=== PATIENT | male | born 1970 | race Asian ===

== ENCOUNTER 2021-06-01 00:47 | Day surgery (SDC) | payer BC, SELFPAY ==
[2021-05-14 14:05] VITALS: BMI 31.4
--- NOTE | 2021-05-31 13:09 | PM.HPGS ---
History of Present Illness History of Present Illness Consent: Risks, benefits, and alternatives have been discussed and questions answered. Patient agrees to proceed with procedure. Chief complaint: neoplasm screening Narrative: Helder Giron is a 51 year old male referred for colon cancer screening Review of Systems Review of Systems: All systems reviewed & are unremarkable except as noted in HPI and below PMFSH Past Medical History Medical History Hypothyroidism (acquired) Lipoma Nephrolithiasis Onychomycosis Steatosis of liver Surgical History Surgical History H/O lithotripsy H/O lumbosacral spine surgery 1990 L5-S1 discectomy S/P excision of lipoma Family History Family History Mother Asthma Social History Social History Social History: Smoking status: Never smoker Second hand tobacco smoke exposure: No Alcohol intake: never Substance use: never Substance use type: does not use Living arrangements: alone Gender identity (if verbalized by the patient): Male Sexual Orientation (if Verbalized by the Patient): Straight or Heterosexual Spiritual care concerns: No Meds Home Medications and Allergies Home Medications Medication Instructions Recorded Confirmed Type levothyroxine 25 mcg tablet 25 mcg PO DAILY #90 tablet 03/29/21 06/01/21 Rx cholecalciferol (vitamin D3) 50 mcg PO DAILY 05/14/21 06/01/21 History [Vitamin D3] penciclovir [Denavir] 1 applic TOPICAL Q2H PRN 05/14/21 06/01/21 History vitamin K2 150 mcg PO DAILY 05/14/21 06/01/21 History Allergies Allergy/AdvReac Type Severity Reaction Status Date / Time No Known Allergies Allergy Verified 06/01/21 08:36 Exam Resp: Auscultation: clear to auscultation bilaterally Cardio: Rate: regular rate Rhythm: regular rhythm GI: GI Palp: Yes Soft to palpation and No Tenderness to palpation present (GI) Assessment and Plan Assessment and plan (1) Colon cancer screening: Code(s): Z12.11 - Encounter for screening for malignant neoplasm of colon Status: Acute Assessment and Plan: Colonoscopy with possible biopsy or polypectomy or cautery or injection of substances.
--- NOTE | 2021-05-31 14:38 | P.PNAN_ITS ---
Anes - Initial Pre Proc Eval Procedure: Operation Date: 06/01/21 09:30 Proposed Procedures p Screening Colonoscopy - Danny Ramirez MD Date/Time: 05/31/21 14:38 Surgeon: Danny Ramirez MD Pre Op Diagnosis: neoplasm screening Patient Data Age: 51 Gender: M Height: 1.8 m Weight: 102 kg Allergies Allergy/AdvReac Type Severity Reaction Status Date / Time No Known Allergies Allergy Verified 06/01/21 08:36 Home Medications Medication Instructions Recorded Confirmed Type levothyroxine 25 mcg tablet 25 mcg PO DAILY #90 tablet 03/29/21 06/01/21 Rx cholecalciferol (vitamin D3) 50 mcg PO DAILY 05/14/21 06/01/21 History [Vitamin D3] penciclovir [Denavir] 1 applic TOPICAL Q2H PRN 05/14/21 06/01/21 History vitamin K2 150 mcg PO DAILY 05/14/21 06/01/21 History Patient hx anesthesia problems: none Family hx anesthesia problems: none Results Review: All pre-operative results and documents have been reviewed as part of the pre-operative evaluation. [facility] Past Medical History Medical History Hypothyroidism (acquired) Lipoma Nephrolithiasis Onychomycosis Steatosis of liver Surgical History Surgical History H/O lithotripsy H/O lumbosacral spine surgery 1990 L5-S1 discectomy S/P excision of lipoma Family History Family History Mother Asthma Social History Social History (Updated 03/29/21 @ 08:29 by Kathleen Powers) Social History: Smoking status: Never smoker Second hand tobacco smoke exposure: No Alcohol intake: never Substance use: never Substance use type: does not use Living arrangements: alone Gender identity (if verbalized by the patient): Male Sexual Orientation (if Verbalized by the Patient): Straight or Heterosexual Spiritual care concerns: No Anes - Eval Final PreProcedure Day of Procedure 05/31/21 14:38 Patient weight: obese Heart: regular rate and rhythm Lungs: clear to auscultation and normal air movement Airway: Mallampati scale class II Neurological: alert and oriented Last oral intake: >/= 8 hours ASA classification: II Emergent: no Anesthetic plan: proceed Anesthesia type and monitoring: general LMA and standard monitoring Results Review: All pre-operative results and documents have been reviewed as part of the pre-operative evaluation. Informed Consent: The patient's anesthetic plan and its attendant risks and benefits were discussed with the patient/family/POA. Questions were solicited and answers provided to the satisfaction of the patient/family/POA.
[2021-06-01 08:36] VITALS: BP 155/96; PULSE 74; RESP 18; TEMP 36.2; O2SAT 100
[2021-06-01] MEDS: LACTATED RINGERS 1,000 ML 30 ML IV CONT (08:48)
[2021-06-01 09:44] VITALS: BP 117/73; PULSE 76; RESP 18; O2SAT 98
[2021-06-01 09:54] VITALS: BP 127/79; PULSE 64; RESP 20; O2SAT 98
[2021-06-01 10:04] VITALS: BP 129/88; PULSE 62; RESP 16; O2SAT 99
== END 2021-06-01 10:17 | disposition home or self-care (01) ==
PROVIDERS: PCP Family Medicine; Visit Provider Internal Medicine Gastroenterology
PROC: 0DJD8ZZ Inspection of Lower Intestinal Tract, Via Natural or Artificial Opening Endoscopic (ICD-10-PCS; CPT 45378; principal; 2021-06-01 09:30)
DX: Z12.11 Encounter for screening for malignant neoplasm of colon (principal); D12.5 Benign neoplasm of sigmoid colon; D12.3 Benign neoplasm of transverse colon; E03.9 Hypothyroidism, unspecified; B35.1 Tinea unguium; K76.0 Fatty (change of) liver, not elsewhere classified; E66.9 Obesity, unspecified; Z68.31 Body mass index [BMI] 31.0-31.9, adult
CPT/HCPCS: 45385; 45380; 88305; J2704; J7120

== ENCOUNTER 2024-08-02 01:33 | Day surgery (SDC) | payer BC, SELFPAY ==
[2024-07-23 13:48] VITALS: BMI 29.5
--- OUTSIDE RECORDS SUMMARY | 2024-08-02 01:39 | XMS_ITS ---
Author Organization [facility] Address [address] [facility] [address] [place] [address] Care Team Providers Care Loan Processor Name Role Phone Lukas Padilla MD Primary Care Provider Jasmin Rasmussen Unavailable [phone] Allergies No Known Allergies REASON FOR VISIT f/u ADHD Medications Medication SIG (Take, Route, Frequency, Duration) Notes Start Date End Date Status Valsartan 80 MG 1 tablet Orally Once a day Active Synthroid 25 MCG 1 tablet in the morning on an empty stomach Orally Once a day Active Amphetamine-Dextroamph et ER 25 MG 1 capsule in the morning Orally Once a day for 30 days d/c 20 mg dose 06/07/2024 Active Social History Tobacco Use: Social History Observation Description Date Details (start date - stop date) Never Smoker NA - NA Sex Assigned At : Social History Observation Description Sex Assigned At Male Household Question Answer Notes Marital status: Number of adults in household: 2 Number of children in household: 2 son and daughter Level of education: finished college retired ofe se Tobacco Control (Standard) Question Answer Notes Tobacco use: Nonsmoker AUDIT-C (Standard) Question Answer Notes Did you have a drink contain ing alcohol in the past year? Yes How often did you have six o r more drinks on one occasion in the past year? Less than monthly (1 point) How many drinks did you have on a typical day when you were drinking in the past year? 1 or 2 drinks (0 point) How often did you have a dri nk containing alcohol in the past year? Monthly or less (1 point) Points 2 Interpretation Negative Problems Problem Type SNOMED Code ICD Code Onset Dates Problem Status W/U Status Risk Notes Problem [id number] Hypertension, unspecified type (I10) Active confirmed Vital Signs Blood pressure systolic 129 mm Hg 06/08/19 25 Blood pressure diastolic 86 mm Hg 025 Heart Rate 71 /min 06/08/2024 Height 71 in 06/08/2024 Weight 220.0 lbs 06/08/2024 BMI 30.68 kg/m2 06/08/2024 Height-cm 180.34 cm 06/08/2024 Weight-kg 99.79 kg 06/08/2024 Encounters Encounter Location Date Provider Diagnosis [facility] [address] [facility] [address] [place] [address] 06/08/2024 Jasmin Tang ADHD (attention deficit hyperactivity disorder), combined type F90.2 Assessments Encounter Date Diagnosis (ICD Code) Assessment Notes Treatment Notes Treatment Clinical Notes Section Notes 06/08/2024 ADHD (attention deficit hyperactivity disorder), combined type (ICD-10 - F90.2) Electronic Prior Authorization was requested for Qelbree 200 MG Capsule Extended Release 24 Hour. Provider can order medication once approval received., Learning About Attention Deficit Hyperactivity Disorder (ADHD) in Adults material was published, Attention Deficit Hyperactivity Disorder (ADHD) in Adults: Care Instructions material was published, Learning About Stimulant Medicines for Attention Deficit Hyperactivity Disorder (ADHD) material was published adhd - DOROTEO-2 reviewed Discuss non- stimualtes and stimulates patient has issues with kidney stones and prefer not to have Straterra with urinary issues Patient has hx irritable at times and prefer not to have Wellbutrin discuss and educated on rx d/c Qelbree 200 mg daily in am PA sent- denied- pateint reported rx did not help educated on stimulates and not to take Phertermine with stimulates Discuss and educated on stimulates discuss Arturo pm and educated on rx and patient reported would like to stay on Adderall pateint reported monitor B/P at home daily Adderall XR 25 MG IN AM- Primary [facility] no refill needed today secondary [facility] [place] no early refill on control [facility] and [place] pharmacy monitor B/P see PCP with B/P patient reported takes Vit K2, MTV, Milk Thistle, (HX FATYY LIVER resolved) Vit D, fish oil, folic acid, vit B 12, DOROTEO-2 test indicated results - do not support the dxn suggested by self rating scale for ADHD hyperactive/impul sive or inattentive s/s, DOROTEO-2 test showed impairments in response control and attention, global response control quotinet scale mild impairment and 3 attention primary scales fell in substantially impaired range, refer to PCP with elevated B/P- SEEN PCP educated to decrease Caffiene intake ADHD stimulates education Discuss with patient risk of misuse, abuse, and addiction before prescribing stimulant medicines. Microwave Radio Technician patients not to share their prescribed stimulant with anyone else. Educate patients and their families on these serious risks, proper storage of the medicine, and proper disposal of any unused medicine. Educated patient will monitor Throughout treatment, regularly assess and monitor them for signs and symptoms of nonmedical use, addiction, and potential diversion, which may be evidenced by more frequent renewal. requests than warranted by the prescribed dosage. Random UDS [place] prescription reviewed local pharmacy in [place], no early refills on control substance educated on non-stimulate and stimulates SEEN PCP with B/P educated on healthy b/p 120/80 monitor b/p at home refer to PCP, heart healthy diet and excise limit salt intake and caffeine http_s://www.gunner .org/About-Mental -Illness/Mental-H ealth-Conditions http_s://psychcen TIKI.VN.com/depressi on/the-cognitive- lhkpixma-py-uirqx ssion#treatments http__s://www.nim h.nih.gov/health/ topics/mental-hea lth-medications http__s://www.nam i.org/About-Menta l-Illness/Treatme nts/Mental-Health -Medications educated on all medications, benefits, side effects and risk, and educated on depression, anxiety, and ADHD, mood d/o and educated on compliance of medications, metabolic and movement d/o education appointment's, continue therapy discussion with patient about course of treatment and patient instructions. education on serotonin syndrome Discussed and educated pt regarding benzodiazepines are generally not intended for prolonged use and that use can cause tolerance, dependence, depression, and associated memory issues including dementias (this list is not exhaustive). Benzodiazepine use is generally not recommended concurrently with pain medications and/or other controlled substances educated on all medications, benefits, side effects and risk, and educated on depression, anxiety, and ADHD, mood d/o and educated on compliance of medications, metabolic and movement d/o education appointment is, continue therapy discussion with patient about course of treatment and patient instructions. education on serotonin syndrome SSRI/SNRI side effects discussed including but not limited to, gastric upset, nausea, vomiting, diarrhea and/or constipation, weight changes, sexual side effects including loss of libido, increased suicidal thoughts/behavior s in children and young adults, and serotonin syndrome. Medication Management and Follow-Up - Plan: - Schedule follow-up appointments every 1-3 months to monitor the patient's response to the medication regimen. - Reinforce the importance of avoiding recreational drug use due to potential neurotoxicity and interactions with prescribed medications. Plan Of Treatment Treatment Notes Assessment Notes ADHD (attention deficit hype ractivity disorder), combined type Electronic Prior Authorization was requested for Qelbree 200 MG Capsule Extended Release 24 Hour. Provider can order medication once approval received., Learning About Attention Deficit Hyperactivity Disorder (ADHD) in Adults material was published, Attention Deficit Hyperactivity Disorder (ADHD) in Adults: Care Instructions material was published, Learning About Stimulant Medicines for Attention Deficit Hyperactivity Disorder (ADHD) material was published Next Appt Details Follow Up: 3 Months, Reason: f/u ADHD rx Provider Name:Jasmin Tang , 09/06/2024 08:15:00 AM, [address] [facility], [facility] [address], [place], [address], Progress Notes * Arash VALDEZNathalieOB: [birth year] (54 yo M)Acc No.[id number]:06/08/2024 Patient: Helder QUEEN Provider: Onofre TANG PMHNP :1970 A ge:54 Y S ex:Male Date:06/08/2024 Phone: Address:[address] [place], [place] [id number] Pcp:Lukas Padilla MD Subjective: * Chief Complaints: * 1 . f/u ADHD. * HPI: D epression Screening: FRANTZ-7 (2018 Edition) F eeling nervous, anxious, or on edge?Not at all, N ot being able to stop or control worrying N ot at all, W orrying too much about different things N ot at all, T rouble relaxing N ot at all, B eing so restless that it is hard to sit still N ot at all, B ecoming easily annoyed or irritable S everal days, F eeling afraid as if something awful might happen N ot at all, I f you checked any problems, how difficult have they made it for you to do your work, take care of things at home, or get along with other people? N ot difficult at all, I nterpretation of Total ( 0 to 4) No Anxiety. C [place]-Suicide Severity Rating Scale: Suicide Risk (CSRS-screener) i n the past one month Have you wished you were or wished you could go to sleep and not wake up? N o, i n the past one month Have you actually had any thoughts of killing yourself? N o, H ave you ever done anything, started to do anything, or prepared to do anything to end your life? N o. D epression screening: PHQ-9 L ittle interest or pleasure in doing things N ot at all, F eeling down, depressed, or hopeless N ot at all, T rouble falling or staying asleep, or sleeping too much N ot at all, F eeling tired or having little energy N ot at all, P oor appetite or overeating N ot at all, F eeling bad about yourself or that you are a failure, or have let yourself or your family down N ot at all, T rouble concentrating on things, such as reading the newspaper or watching television N ot at all, M oving or speaking so slowly that other people could have noticed; or the opposite, being so fidgety or restless that you have been moving around a lot more than usual N ot at all, T houghts that you would be better off or of hurting yourself in some way N ot at all, T otal Score 0 . P ast Psychiatric Hospitalizations: Previous psychiatric hospitalizations P revious Psychiatric Hospitalization N o. P ast History of Suicidal attempt H ave you ever attempted suicide in the past N o. Follow up I ran into office and B/P was up and after I sit normal and I monitor it at home and ADHD rx Adderall is doing good and better feel concentration and focus and also with irritable better and I am more engage and able to do task, I feel like dose is good, sleep good and I feel evening hours 4-5 pm rx wears off and less energy and still able to focus and able to go to bed, I feel no sad or down, no hopeless or helpless, I feel no anxious, no panic attacks, and no restless, appetite good, weight stable no psychosis, no delusions, no paranoia, no sesar, no hypomania, no physical aggression, motivation and interest fine, energy normal, noSI/HI 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 I get bored also, I am not hyper talkative, and in school with speeches or public speeches needed notes or lose trian thought and times needed to move around but not frequent, I can sit long periods time, I do interrupt others to get thoughts out, or forget it or thought across, cause tension at times, been going on all my life, effecys social, home, work, and irritates my and others, denies SI/HI no plans or intent no past attempts, no thoughts harm to self or others, FH son and daughter thoughts no attempts, no self cutting or self harm, no psychiatric hospital, weapons in home in safe, ETOH- occasional - 2 drinks a year smoking- denies labs- recently- PCP drugs- denies RX HX- none for psychiatric medical- hypothyroidism, L5-S1- SURGERY, Vit D def on rx, FH- Children - Depression, Daughter 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 reported takes V it K2, MTV, Milk Thistle, (HX FATYY LIVER resolved) Vit D, fish oil, folic acid, vit B 12,. * ROS: P sychiatric: Delusions d enies. r eports n o shortness of breath no palpitations, no known heart murmur, and no ankle swelling; no cough. r eports no abdominal pain, no nausea, no vomiting, no constipation, normal appetite, no diarrhea, and no GERD; . r eports no headaches and no migraines but reports no loss of consciousness, no weakness, no numbness, no seizures, no dizziness, no tremor, no gait dysfunction, and no paralysis. r eports no sleep disturbances no restless sleep, and no memory loss b ut reports no depression, feeling safe in a relationship, no alcohol abuse, mild anxiety, no hallucinations, no suicidal thoughts, no mood swings, no agitation, r eports no fatigue. reports no fever, no significant weight gain, and no significant weight loss. reports no incontinence, no difficulty urinating, and no increased frequency. HX KIDNEY STONES and obstructions - hx Flomax PRN r eports no muscle aches, no muscle weakness, no arthralgias/joint pain, no back pain, no swelling in the extremities, no neck pain, and no difficulty walking. * Medical History: a bdominal aortic aneurysm: No, atrial fibrillation: No, chronic fatigue syndrome: No, essential tremor: No, hyperlipidemia: No, hypertension: No, Parkinson's disease: No, restless leg syndrome: No, stroke: No, type 1 diabetes mellitus: No, type 2 diabetes mellitus: No, vitamin B12 deficiency: No, vitamin D deficiency: Yes. * Social History: T obacco Use: T obacco Control (Standard) T obacco use: N onsmoker. D rug/Alcohol: D rugs H ave you used drugs other than those for medical reasons in the past 12 months??No. C affeine I ntake: m ore than 4 cups per day 2-3 pots coffee a day. D o you smoke marijuana?: Denies. Do you drink alcohol?: Yes, sometimes few times a year. AUDIT-C (Standard)?Did you have a drink containing alcohol in the past year? Y es, H ow often did you have six or more drinks on one occasion in the past year? L ess than monthly (1 point), H ow many drinks did you have on a typical day when you were drinking in the past year? 1 or 2 drinks (0 point), H ow often did you have a drink containing alcohol in the past year? M onthly or less (1 point), P oints 2 , I nterpretation N egative. H ousehold: H ousehold M arital status: m arried, N umber of adults in household: 2 , N umber of children in household: 2 son and daughter, N umber of siblings: 2 sister and 1/2 brother, Carmenza altael of education: f [employer] retired nurse, A vt household tobacco use? N o. M iscellaneous: A dvance Care Planning A re you your own decision-maker Y es, D o you have Power of Transcripter for Health or Medical? N o. S ocial History: H ousehold M arital Status: M arried. * Medications: T aking Valsartan 80 MG Tablet 1 tablet Orally Once a day , Taking Synthroid 25 MCG Tablet 1 tablet in the morning on an empty stomach Orally Once a day , Taking Amphetamine-Dextroamphet ER 25 MG Capsule Extended Release 24 Hour 1 capsule in the morning Orally Once a day , Notes to Pharmacist: d/c 20 mg dose, Medication List reviewed and reconciled with the patient * Allergies: N .K.D.A. Objective: * Vitals: B P: 150/83 mm Hg,129/86mm Hg, HR:71/min, Wt:220.0lbs, Wt-k.79 kg, Ht: 71 in, Ht-cm: 180.34 cm, BMI:30.68Index, Body Surface Area: 2.23. * Examination: P sychiatry: Appearance: w ell-groomed. Abnormal body movements: n one. Affect / mood: a ppropriate, full range. Aggression: l ow. Anger control: g ood. Attention: g ood. Attitude: c ooperative. Homicidal ideation: n one. Suicidal ideation: n one. Memory status: n o impairment noted. Degree of awareness of surroundings: w ithin normal limits.? Delusions: n o. Hallucinations: n o. Impulse control: g ood. Insight: g ood. Intellectual functioning: a verage. Calculation - Intellectual function: n ot tested. Literacy - Intellectual function: n ot tested. Comprehension - Intellectual function: a verage. Abstract / proverb - Intellectual function: n ot tested.? Similarities / opposites - Intellectual function: n ot tested. Judgement: g ood. Orientation: a wake, alert and oriented x 3. Perceptual disorders: n o perceptual disorder noted. Psychomotor activity: w ithin normal range. Sexual impulse control: g ood. Speech / language: a ppropriate pitch/modulation. Thought content: a ppropriate. Thought process: i ntact. Assessment: * Assessment: 1. A DHD (attention deficit hyperactivity disorder), combined type - F90.2 (Primary) adhd - DOROTEO-2 reviewed Discuss non- stimualtes and stimulates patient has issues with kidney stones and prefer not to have Straterra with urinary issues Patient has hx irritable at times and prefer not to have Wellbutrin discuss and educated on rx d/c Qelbree 200 mg daily in am PA sent- denied- pateint reported rx did not help educated on stimulates and not to take Phertermine with stimulates Discuss and educated on stimulates discuss Arturo pm and educated on rx and patient reported would like to stay on Adderall pateint reported monitor B/P at home daily A dderall XR 25 MG IN AM- Primary [facility] no refill needed today [facility] [place] no early refill on control substance and [place] pharmacy monitor B/P see PCP with B/P patient reported takes Vit K2, MTV, Milk Thistle, (HX FATYY LIVER resolved) Vit D, fish oil, folic acid, vit B 12, DOROTEO-2 test indicated results - do not support the dxn suggested by self rating scale for ADHD hyperactive/impulsive or inattentive s/s, DOROTEO-2 test showed impairments in response control and attention, global response control quotinet scale mild impairment and 3 attention primary scales fell in substantially impaired range, refer to PCP with elevated B/P- SEEN PCP educated to decrease Caffiene intake ADHD stimulates education Discuss with patient risk of misuse, abuse, and addiction before prescribing stimulant medicines. Microwave Radio Technician patients not to share their prescribed stimulant with anyone else. Educate patients and their families on these serious risks, proper storage of the medicine, and proper disposal of any unused medicine. Educated patient will monitor Throughout treatment, regularly assess and monitor them for signs and symptoms of nonmedical use, addiction, and potential diversion, which may be evidenced by more frequent renewal. requests than warranted by the prescribed dosage. Random UDS [place] prescription reviewed local pharmacy [place], no early refills on control substance educated on non-stimulate and stimulates SEEN PCP with B/P educated on healthy b/p 120/80 monitor b/p at home refer to PCP, heart healthy diet and excise limit salt intake and caffeine http_s://www.gunner.org/Mizvx-Asjeqj-Pqvqrpa/Tmczhp-Nwkjsi-Sysewnbowj http_s://psychcentral.com/depression/poc-grbzbnebe-lxigpuvk-of-depression#treatm ents http__s://www.[facility].nih.gov/health/topics/nzgzkw-ewtdpa-jllhbiwhlef http__s://www.gunner.org/Qghpn-Bdmlrk-Xlmoool/Treatments/Pqnvmc-Jwijmh-Kgtxcfeaxfz educated on all medications, benefits, side effects and risk, and educated on depression, anxiety, and ADHD, mood d/o and educated on compliance of medications, metabolic and movement d/o education appointment's, continue therapy discussion with patient about course of treatment and patient instructions. education on serotonin syndrome Discussed and educated pt regarding benzodiazepines are generally not intended for prolonged use and that use can cause tolerance, dependence, depression, and associated memory issues including dementias (this list is not exhaustive). Benzodiazepine use is generally not recommended concurrently with pain medications and/or other controlled substances educated on all medications, benefits, side effects and risk, and educated on depression, anxiety, and ADHD, mood d/o and educated on compliance of medications, metabolic and movement d/o education appointment is, continue therapy discussion with patient about course of treatment and patient instructions. education on serotonin syndrome SSRI/SNRI side effects discussed including but not limited to, gastric upset, nausea, vomiting, diarrhea and/or constipation, weight changes, sexual side effects including loss of libido, increased suicidal thoughts/behaviors in children and young adults, and serotonin syndrome. Medication Management and Follow-Up - Plan: - Schedule follow-up appointments every 1-3 months to monitor the patient's response to the medication regimen. - Reinforce the importance of avoiding recreational drug use due to potential neurotoxicity and interactions with prescribed medications. Plan: * Treatment: * Procedure Codes: G 2211 VISIT COMPLEXITY INHERENT TO ONGOING CARE RELATED TO A PATIENT'S SINGLE, SERIOUS CONDITION OR A COMPLEX CONDITION * Preventive Medicine: Counseling: B P Management: F IRST HYPERTENSIVE BP READING FOLLOW-UP PLAN: F ollow-up 1 month Follow up with your PCP, Carmenza MCCLURE RECOMMENDATION: Carmenza mcclure education, REFERRAL TO ALTERNATIVE / PRIMARY CARE PROVIDER: R eferral to general medical service Recommended Nonpharmacologic Interventions (Lifestyle Modifications) - Weight ReductionA heart-healthy diet , such as Dietary Approaches to Stop Hypertension (DASH) Eating PlanDietary Sodium RestrictionIncreased Physical ActivityModeration in alcohol consumption. * Follow Up: 3 Months (Reason: f/u ADHD rx) * Billing Information: * Visit Code: 15137 OFFICE OUTPATIENT VISIT PROBLEM FOCUSED HISTORY AND EXAM/STRAIGHT FORWARD MEDICAL DECISION MAKING. * Procedure Codes: G2211 VISIT COMPLEXITY INHERENT TO ONGOING CARE RELATED TO A PATIENT'S SINGLE, SERIOUS CONDITION OR A COMPLEX CONDITION. * OGRAPHIC LITHOGRAPHER Sign off status: Completed true * Provider: ALINE LAKE Date: 06/08/2024 Generated for Nora greco/Darrion/Chencho on: 08/02/2024 01:38 AM CDT History and Physical Notes * HPI (History of Present Illness) Category Sub-Category Detail Notes Category Not es Past Psychiatric Hospitalizations Previous psychiatric hospitalizations Previous Psychiatric Hospitalization: No Follow up I ran into office and B/P was up and after I sit normal and I monitor it at home and ADHD rx Adderall is doing good and better feel concentration and focus and also with irritable better and I am more engage and able to do task, I feel like dose is good, sleep good and I feel evening hours 4-5 pm rx wears off and less energy and still able to focus and able to go to bed, I feel no sad or down, no hopeless or helpless, I feel no anxious, no panic attacks, and no restless, appetite good, weight stable no psychosis, no delusions, no paranoia, no sesar, no hypomania, no physical aggression, motivation and interest fine, energy normal, noSI/HI 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 I get bored also, I am not hyper talkative, and in school with speeches or public speeches needed notes or lose trian thought and times needed to move around but not frequent, I can sit long periods time, I do interrupt others to get thoughts out, or forget it or thought across, cause tension at times, been going on all my life, effecys social, home, work, and irritates my and others, denies SI/HI no plans or intent no past attempts, no thoughts harm to self or others, FH son and daughter thoughts no attempts, no self cutting or self harm, no psychiatric hospital, weapons in home in safe, ETOH- occasional - 2 drinks a year smoking- denies labs- recently- PCP drugs- denies RX HX- none for psychiatric medical- hypothyroidism, L5-S1- SURGERY, Vit D def on rx, FH- Children - Depression, Daughter 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 reported takes Vit K2, MTV, Milk Thistle, (HX FATYY LIVER resolved) Vit D, fish oil, folic acid, vit B 12, Past History of Suicidal attempt Have yo u ever attempted suicide in the past: No Depression screening PHQ-9 Little inte rest or pleasure in doing things: Not at all Feeling down, depressed, or hopeless: No t at all Trouble falling or staying asleep, or sl eeping too much: Not at all Feeling tired or having little energy: N ot at all Poor appetite or overeating: Not at all Feeling bad about yourself o r that you are a failure, or have let yourself or your family down: Not at all Trouble concentrating on thi ngs, such as reading the newspaper or watching television: Not at all Moving or speaking so slowly that other people could have noticed; or the opposite, being so fidgety or restless that you have been moving around a lot more than usual: Not at all Thoughts that you would be b gonzalo off or of hurting yourself in some way: Not at all Total Score: 0 Depression Screening FRANTZ-7 (2018 Edition) Feelin g nervous, anxious, or on edge: Not at all Not being able to stop or control worryi ng: Not at all Worrying too much about different things : Not at all Trouble relaxing: Not at all Being so restless that it is hard to sit still: Not at all Becoming easily annoyed or irritable: days Feeling afraid as if something awful carly ht happen: Not at all If you checked any problems, how difficult have they made it for you to do your work, take care of things at home, or get along with other people?: Not difficult at all Interpretation of Total: (0 to 4) No Anx iety [place]-Suicide Severity Rating Scale Suicide Risk (CSRS-screener) in the past one month Have you wished you were or wished you could go to sleep and not wake up?: No in the past one month Have y ou actually had any thoughts of killing yourself?: No Have you ever done anything, started to do anything, or prepared to do anything to end your life?: No Examination Category Sub-Category Detail Notes Category Not es Psychiatry Appearance: well-groomed Attitude: cooperative Psychomotor activity: within normal rang e Abnormal body movements: none Attention: good Degree of awareness of surroundings: wit hin normal limits Orientation: awake, alert and felisa ented x 3 Affect / mood: appropriate, full ra nge Speech / language: appropriate pitch/mo dulation Insight: good Judgement: good Thought process: intact Thought content: appropriate Perceptual disorders: no perceptual diso rder noted Aggression: low Anger control: good Suicidal ideation: none Homicidal ideation: none Intellectual functioning: average Impulse control: good Sexual impulse control: good Memory status: no impairment noted Delusions: no Hallucinations: no Calculation - Intellectual function: not tested Literacy - Intellectual function: not te sted Comprehension - Intellectual function: a verage Abstract / proverb - Intellectual functi on: not tested Similarities / opposites - Intellectual function: not tested
--- OUTSIDE RECORDS SUMMARY | 2024-08-02 01:39 | XMS_ITS ---
Author Organization [facility] [employer] [facility] Address [facility] [address] [address] [facility] [address] [place] [address] Care Team Providers Care Domestic Freight Forwarder Name Role Phone Lukas Padilla MD Primary Care Provider Jasmin Rasmussen Unavailable [phone] REASON FOR VISIT ADHD Med Refill Medications Medication SIG (Take, Route, Frequency, Duration) Notes Start Date End Date Status Amphetamine-Dextroamph et ER 25 MG 1 capsule in the morning Orally Once a day for 30 days d/c 20 mg dose 06/07/2024 Active Social History Sex Assigned At : Social History Observation Description Sex Assigned At Male Encounters Encounter Location Date Provider Diagnosis [facility] [address] [facility] [address] [facility] [address] [place] [address] 06/07/2024 Jasmin Tang ADHD (attention deficit hyperactivity disorder), combined type F90.2 and Other specified attention deficit hyperactivity disorder (ADHD) 314.01 Assessments Encounter Date Diagnosis (ICD Code) Assessment Notes Treatment Notes Treatment Clinical Notes Section Notes 06/07/2024 ADHD (attention deficit hyperactivity disorder), combined type (ICD-10 - F90.2) 06/07/2024 Other specified attention deficit hyperactivity disorder (ADHD) (ICD9-CM - 314.01) Plan Of Treatment Medication Medication Name Sig Start Date Stop Date Notes Amphetamine-Dextroamphet ER 25 MG 1 capsule in the morning Orally Once a day for 30 days 06/07/2024 d/c 20 mg dose Next Appt Details Provider Name:Jasmin Tang , 09/06/2024 08:15:00 AM, [address], [place], [address], Progress Notes * Glenn GIRONOB: [birth year] (54 yo M)Acc No.[id number]:06/07/2024 Patient: Helder QUEEN :1970 A ge:54 Y S ex:Male Phone: Address:[address] [facility] [address] * Refills Refill Amphetamine-Dextroamphet ER Capsule Extended Release 24 Hour, 25 MG, Orally, 30, 1 capsule in the morning, Once a day, 30 days, Refills=0 Subjective: * Chief Complaints: * A DHD Med Refill * Medical History: * Surgical History: * Hospitalization/Major Diagno stic Procedure: * Medications: Objective: * Vitals: * Physical Examination: Assessment: * Assessment: 1. O ther specified attention deficit hyperactivity disorder (ADHD) - 314.01 (Primary) ? 2 . A DHD (attention deficit hyperactivity disorder), combined type - F90.2 ? Plan: * Treatment: * Procedure Codes: E RX CONTROLLED SUBSTANCE ERX * true * Date: Generated for Nora greco/Darrion/Mingosmitting on: 0 08/02/2024 01:39 AM CDT
--- OUTSIDE RECORDS SUMMARY | 2024-08-02 01:39 | XMS_ITS | Continuity of Care Document ---
Author Name [facility] Organization [facility] Care Team Providers Care President & Founder Name Role Phone [facility] Unavailable Unavailable Encounters Combined list of: 1) Encounters from Department of Veterans Affairs facilities going backup to the last 18 months, not all [facility] inpatient encounters are included; 2) Encounters from the Department of Defense facilities going backup to 280 months. Location Location Details Encounter Type Encounter Number Reason For Visit Attending Provider ADM Date DC Date Status Disposition Source [facility] Outpatient Encounter [id number] 10/01 [facility] Social History Combined list of available smoking, tobacco, and other social history from Department of Defense and Veterans Affairs facilities. Social History Type Response Date Comment Sourc e This section is an empty social history section. [facility]
--- OUTSIDE RECORDS SUMMARY | 2024-08-02 01:39 | XMS_ITS | Patient Health Summary ---
Author Organization [facility] Address [address] [place] [address] Care Team Providers Care Med Dir Name Role Phone Andre Diane MD Primary Care Provider Unavailabl e Note from [facility],non-owned Affiliates and Associated Physician Practices is amultiple site organization consisting of ambulatory clinics and hospital sitesin [place], [place], [place] and [place]. This disclosure is being madepursuant to the Care Everywhere program and may not contain all information available regarding this patient. Last updated 18.[facility] Allergies No known active allergies Medications * Be aware that medications may not be up to date on this document. Alwaysverify current medications with the patient. * penciclovir (DENAVIR) 1 % cream(Started 05/03/2014) Apply to affected area every 2 hours while awake. 11 refills left * levothyroxine (SYNTHROID) 25 MCG tablet(Started 08/11/2014) TAKE 1 TABLET BY MOUTH EVERY DAY * modafinil (PROVIGIL) 200 MG tablet Take 200 mg by mouth once daily * benzonatate (TESSALON) 100 MG capsule(Started 12/05/2018) Take 1 capsule by mouth 3 times daily as needed for Cough Reasons: Cough Active Problems Problem Noted Date Diagnosed Date Mass on back 02/05/2017 Rectal bleeding 07/13/2012 Hematuria 07/13/2012 Social History Tobacco Use Types Packs/Day Years Used Date Smoking Tobacco: Never Smokeless Tobacco: Never Alcohol Use Standard Drinks/Week Comments No 0 (1 standard drink = 0.6 oz pur e alcohol) Sex and Gender Information Value Date Recorded Sex Assigned at Not on file Gender Identity Not on file Sexual Orientation Not on file Last Filed Vital Signs Vital Sign Reading Time Taken Comments Blood Pressure 142/98 12/05/2018 2:31 PM CDT Pulse 90 12/05/2018 2:31 PM CDT Temperature 36.8 C (98.3 F) 12/05/2018 2:31 PM CDT Respiratory Rate 16 12/05/2018 2:31 PM CDT Oxygen Saturation 98% 12/05/2018 2:31 PM CDT Inhaled Oxygen Concentration - - Weight 102.5 kg (226 lb) 12/05/2018 2:31 PM CDT Height 180.3 cm (5' 11 ) 12/05/2018 2:31 PM CDT Body Mass Index 31.52 12/05/2018 2:31 PM CDT Procedures * US ABDOMEN LIMITED(Performed 11/13/2020) Performed for Elevated LFTs * XR ABDOMEN KUB(Performed 11/01/2020) Performed for History of renal calculi * HOME SLEEP STUDY(Performed 01/29/2019) Performed for Snoring, Daytime hypersomnolence, Witnessed episode of apnea * XR CHEST 2VW(Performed 12/24/2018) Performed for Cough * STREP A SCREEN - POINT OF CARE (AMB) STL(Performed 12/05/2018) Performed for Acute URI * XR ABDOMEN KUB(Performed 09/23/2018) Performed for Calculus of kidney * PATHOLOGY TISSUE EXAM (STL)(Performed 02/05/2017) Performed for Mass on back * EXCISION MASS OR TUMOR BACK/FLANK(Performed 02/05/2017) Performed for Mass on back * LARYNGEAL MASK AIRWAY(Performed 01/23/2017) * XR ABDOMEN KUB(Performed 01/23/2017) Performed for Kidney stone * EXTRACORPOREAL SHOCK WAVE LITHOTRIPSY (ESWL)(Performed 01/23/2017) * XR ABDOMEN KUB(Performed 12/31/2016) Performed for Kidney stone * XR ABDOMEN KUB(Performed 10/01/2016) Performed for Kidney stone * PROTEIN URINE TIMED QUANTITATIVE(Performed 05/01/2016) Performed for Kidney stone * XR ABDOMEN AP AND OBLIQUE(Performed 04/16/2016) Performed for Kidney stone * XR ABDOMEN KUB(Performed 02/29/2016) Performed for Kidney stone * CARDIAC RHYTHM STRIP ORDER(Performed 02/16/2016) * PATHOLOGY TISSUE EXAM (STL)(Performed 02/14/2016) Performed for Soft tissue tumor * EXCISION SOFT TISSUE MASS HAND(Performed 02/14/2016) Performed for Soft tissue tumor * XR ABDOMEN KUB(Performed 01/23/2016) Performed for Kidney stones * STONE ANALYSIS QUANT(Performed 01/16/2016) Performed for Kidney stones * XR ABDOMEN KUB(Performed 01/16/2016) Performed for Kidney stones * EXTRACORPOREAL SHOCK WAVE LITHOTRIPSY (ESWL)(Performed 12/21/2015) * XR ABDOMEN KUB(Performed 12/21/2015) Performed for Hematuria * XR ABDOMEN KUB(Performed 11/28/2015) Performed for Kidney stone * US RETROPERITONEAL LIMITED(Performed 10/12/2014) Performed for Hematuria, unspecified * US ABDOMEN LIMITED(Performed 10/12/2014) Performed for Other nonspecific abnormal serum enzyme levels * CBC W AUTO DIFFERENTIAL(Performed 03/21/2014) Performed for Hypothyroidism, Obesity * PROSTATE SPECIFIC ANTIGEN SCREEN(Performed 03/21/2014) Performed for History of rectal bleeding * VITAMIN D 25-HYDROXY(Performed 03/21/2014) Performed for Encounter for vitamin deficiency screening * LIPID PROFILE(Performed 03/21/2014) Performed for Lipid screening * TSH(Performed 03/21/2014) Performed for Hypothyroidism, Obesity * COMPREHENSIVE METABOLIC PANEL(Performed 03/21/2014) Performed for Hypothyroidism, Obesity * URINALYSIS AUTO - POINT OF CARE(Performed 03/21/2014) Performed for History of hematuria * CT ABDOMEN PELVIS WO CONTRAST(Performed 07/13/2012) Performed for Rectal bleeding, Hematuria * URIC ACID BLOOD(Performed 07/13/2012) Performed for Rectal bleeding, Hematuria * TSH(Performed 07/13/2012) Performed for Rectal bleeding, Hematuria * COMPREHENSIVE METABOLIC PANEL(Performed 07/13/2012) Performed for Rectal bleeding, Hematuria * CBC W AUTO DIFFERENTIAL(Performed 07/13/2012) Performed for Rectal bleeding, Hematuria * PT-INR(Performed 07/13/2012) Performed for Rectal bleeding, Hematuria * PTT(Performed 07/13/2012) Performed for Rectal bleeding, Hematuria * URINALYSIS REFLEX TO MICROSCOPIC NO CULTURE(Performed 07/13/2012) Performed for Rectal bleeding, Hematuria * T3 FREE(Performed 10/18/2011) * T4 FREE(Performed 10/18/2011) * T3 FREE(Performed 08/21/2011) * T4 FREE(Performed 08/21/2011) * T3 TOTAL(Performed 08/21/2011) * CBC W AUTO DIFFERENTIAL(Performed 08/21/2011) * COMPREHENSIVE METABOLIC PANEL(Performed 08/21/2011) * TSH(Performed 08/21/2011) * LIPID PROFILE(Performed 08/21/2011) * HEPATITIS C ANTIBODY(Performed 07/01/2011) * HEPATITIS C RNA QUANTITATIVE PCR(Performed 03/13/2011) * HEPATIC FUNCTION PANEL(Performed 03/13/2011) * HEPATIC FUNCTION PANEL(Performed 02/13/2011) * HEPATIC FUNCTION PANEL(Performed 01/15/2011) * HIV-1 HIV-2 ANTIBODY(Performed 12/08/2010) * CBC W AUTO DIFFERENTIAL(Performed 12/08/2010) * HEPATIC FUNCTION PANEL(Performed 12/08/2010) * HEPATITIS B SURFACE ANTIBODY(Performed 12/08/2010) * HEPATITIS C ANTIBODY(Performed 12/08/2010) * TSH(Performed 06/03/2008) * LIPID PROFILE W LDL/HDL RATIO(Performed 06/03/2008) * COMPREHENSIVE METABOLIC PANEL(Performed 06/03/2008) * CBC W AUTO DIFFERENTIAL(Performed 06/03/2008) * EXTRACORPOREAL SHOCK WAVE LITHOTRIPSY (ESWL) Results * US ABDOMEN LIMITED (11/13/2020 10:28 AM CDT) Only the most recent of2 resultswithin the time period is included. Anatomical Region Laterality Modality Abdomen Ultrasound 11/13/2020 4:22 PM CDT Impressions 11/13/2020 4:23 PM CDT Fatty infiltration to the liver *Reading Radiologist: Amador Ferro on 11/13/2020 at 4:23 PM Narrative 11/13/2020 4:23 PM CDT Ultrasound abdomen limited INDICATION: Elevated liver function test Findings can Ultrasound shows increased echotexture liver consistent with fatty infiltration. There is some focal fat sparing around the gallbladder. The pancreas is unremarkable. No gallstones are present. The common bile duct measures 0.36 cm. The right kidney measures 12.44 x 5.83 x 5.62 cm. There is no hydronephrosis. Procedure Note Amador Ferro MD - 11/13/2020 Ultrasound abdomen limited INDICATION: Elevated liver function test Findings can Ultrasound shows increased echotexture liver consistent with fatty infiltration. There is some focal fat sparing around the gallbladder. The pancreas is unremarkable. No gallstones are present. The common bile duct measures 0.36 cm. The right kidney measures 12.44 x 5.83 x 5.62 cm. There is no hydronephrosis. IMPRESSION Fatty infiltration to the liver *Reading Radiologist: Amador Ferro on 11/13/2020 at 4:23 PM Bryan Kincaid MD US ORDERABLES * XR ABDOMEN 1 VW (11/01/2020 1:24 PM CDT) Only the most recent of10 resultswithin the time period is included. Anatomical Region Laterality Modality Abdomen Radiographic Christine ging 11/01/2020 1:31 PM CDT Narrative 11/01/2020 2:04 PM CDT ABDOMEN AP INDICATION: Renal stone. FINDINGS: Prior from September 23, 2018. Questionable 3 mm left midpole renal stone. 4 mm right midpole renal stone, difficult to discern due to overlying bowel artifact. No ureteral stone is seen. The bowel gas pattern is unremarkable. Edited by Huma Goodwin on 11/01/2020 1:40 PM *Reading Radiologist: Aston Aguilar on 11/01/2020 at 2:04 PM Procedure Note Aston Aguilar MD - 11/01/2020 ABDOMEN AP INDICATION: Renal stone. FINDINGS: Prior from September 23, 2018. Questionable 3 mm left midpole renal stone. 4 mm right midpole renal stone, difficult to discern due to overlying bowel artifact. No ureteral stone is seen. The bowel gas pattern is unremarkable. Edited by Huma Goodwin on 11/01/2020 1:40 PM *Reading Radiologist: Aston Aguilar on 11/01/2020 at 2:04 PM Bryan Kincaid MD DIAGNOSTIC IMAGING O RDERABLES * HOME SLEEP STUDY (01/29/2019 11:59 PM CDT) Narrative Ok Cooley MD - 01/29/2019 11:59 PM CDT Ok Cooley MD 02/05/2019 9:26 AM SleepView Interpretation Patient Name: Helder Giron : 1970 Study Date: 01/29/2019 Referred by: Elijah Sheldon MD Device Unique Identifier: [id number] Interpreted by: Ok Cooley MD PATIENT INFORMATION: This 49-year-old Male was referred for a type 3 portable sleep study. The patient's current sleep complaints include Snoring Height was 71.0 in and weight was 225.0 lb, which represented a BMI of 31.38. Patient has an [place] score of 5/24. The patient has a STOP score of 1and a BANG score of 1. The patients past medical history: Thyroid Disease Current medication list included: Synthroid PROCEDURE: The patient underwent a digital diagnostic portable type 3 device home sleep test; Utilizing Flyfit portable sleep monitor. The patient was provided with printed out instructions and access to a 24/ patient support number with staff online facilitator to answer any questions regarding the study. Sleep time (identified as AASM equivalent of Monitoring Time [MT] in this report) was recorded via actigraphy derived from an accelerometer physically integrated into the SleepView unit; also providing body position monitoring. Airflow and snore were recorded via an oral/nasal cannula. The option for a 2nd measure of airflow via oral/nasal thermistor is also present. Respiratory effort was recorded via Respiratory Inductance Plethysmography (also known as RIP technology, including the option for a secondary RIP belt). Oxygen saturation was obtained by a pulse oximeter, to identify oxygen desaturations and heart rate variations. All raw data was graphically depicted and utilized for scoring and detailed interpretive review. The patient underwent one night of study. The data was recorded internally to memory built into the SleepView unit and uploaded to [email or web address] website for scoring and interpretation. All raw data, graphically depicting all recorded channels, was utilized for scoring and detailed interpretive review. The standards put forth by the [place] [employer] were followed for the complete scoring by a Supervisor Microfilm Duplicating Unit and interpretation by a Board Certified Sleep Medicine Physician. SLEEP TIME AND EFFICIENCY: The sleep study recording began at 08:31:33 PM and ended at 04:59:46 AM. Total recording time was 508.2 minutes. The total monitoring time was 479.5 minutes. The sleep efficiency was assumed to be 94.3 percent. The patient s own estimate of sleep time was 8.00 hours. The patient spent 170.6 minutes supine, and spent 308.9 minutes non-supine SNORIN.7 % of the study time was spent snoring. The Snoring Count was 140 . The Snoring Index was 17.5 . PULSE RATE REVIEW: The mean heart rate was 59 beats per minute. The rate ranged from a low of 51 to a high of 72 beats per minute. RESPIRATORY DATA: The REYMUNDO on this type 3 Home Sleep Study may understate the AHI determined on a type 1 or 2 study, since EEG is not monitored resulting in the inability to score non-desaturating hypopneas. Based on 3% Calculation: The REYMUNDO 3% calculation of 28.4 per hour of monitoring time was based on a total of 128 scored apneas and 99 scored hypopneas with 3% desaturations. Supine REYMUNDO 3%:47.8 per hour. Non-supine REYMUNDO 3%: 17.1 per hour. Based on 4% Calculation: The REYMUNDO 4% calculation of 23.3 per hour of monitoring time was based on a total of 128 scored apneas and 58 scored hypopneas with 4% desaturations. Supine REYMUNDO 4%: 43.3 per hour. Non-supine REYMUNDO 4%: 11.7 per hour. Oxygen Saturation: Patient's baseline O2 saturation was 96.4 %. The patient spent 5.2 minutes at an oxygen saturation less than 90%, and 0.9 minutes less than or equal to 88%. The desaturation index was 26.4 events per hour monitoring time. The lowest saturation was 83.0 %. DIAGNOSIS ICD-10 Code: G47.33 Obstructive sleep apnea (adult) OVERALL IMPRESSION: Study showed evidence for moderate MINH based on apnea plus hypopnea index of 28.4 events per hour of recording time using 3% and 4% desaturation rule and AHI of 23.3 events per hour using 4% desaturation rule. There was no evidence for significant nocturnal desaturation spending 0.9 minutes of recording time with saturation <= 88%. The lowest oxygen saturation was 83%. I reviewed the raw data. TECHNICALLY ADEQUATE: adequate RECOMMENDATION: Positive airway pressure therapy is the treatment of choice for sleep disordered breathing. Given the severity and the day time sleepiness, the patient will benefit from CPAP therapy which can be arranged through an in lab CPAP titration OR an auto titrating CPAP trial at home depending upon patient's co morbidities and insurance coverage. Other treatment options for patients with sleep apnea include weight loss, dental appliance, positional therapy, hypoglossal nerve stimulation and upper airway surgery. But none as affective as CPAP with such severity of sleep apnea One should be careful in driving and operating heavy equipment if there are symptoms of excessive daytime sleepiness. Caution is advised with the use of alcohol, narcotics and sedatives with history of sleep apnea since they can cause worsening of sleep disordered breathing. Follow up with primary care to discuss the results of sleep study. Patient should follow up in 5-6 weeks after has been set up on CPAP to assess response and to evaluate CPAP adherence. Ok Cooley MD Elijah Sheldon MD SLEEP CENTER ORDERAB LES * XR CHEST 2VW (12/24/2018 8:15 AM CDT) Anatomical Region Laterality Modality Chest Radiographic Christine ging 12/24/2018 8:59 AM CDT Impressions 12/24/2018 8:59 AM CDT No acute cardiopulmonary process. Reading Radiologist: Maryse Wagner MD on 12/24/2018 at 8:59 AM Narrative 12/24/2018 8:59 AM CDT Chest Two Views History: Cough Comparison: None Findings: The lungs are clear. No pneumothorax or pleural effusion. The cardiomediastinal silhouette is within normal limits. Procedure Note Maryse Wagner MD - 12/24/2018 Chest Two Views History: Cough Comparison: None Findings: The lungs are clear. No pneumothorax or pleural effusion. The cardiomediastinal silhouette is within normal limits. IMPRESSION No acute cardiopulmonary process. Reading Radiologist: Maryse Wagner MD on 12/24/2018 at 8:59 AM Bryan Kincaid MD DIAGNOSTIC IMAGING O RDERABLES * STREP A SCREEN (12/05/2018) Strep A Rapid POCT Negative Negative Strep A Internal Control Present Lot # [id number] Expiration Date 04/24/20 Throat ENTIRE THROAT (SURFACE REGION OF NECK) / Unknown 12/05/2018 Ronda Anglin [facility] - POINT OF CA RE ORDERABLES * GROSS + MICRO EXAM (STL) (02/05/2017 8:14 AM CDT) Only the most recent of2 resultswithin the time period is included. Case Report Surgical Pathology Report Case: [id number] Authorizing Provider: Elder Sol MD Collected: 02/05/2017 08:14 AM Ordering Location: [facility] Received: 02/05/2017 11:06 AM CENTER Pathologist: Andrei Salinas MD Specimen: Mass, mass right back 02/06/2017 3:19 PM CDT [facility] Final Diagnosis 1. Back, mass: -- Mature adipose tissue consistent with lipoma /mihai 02/06/2017 3:19 PM T [facility] Gross Description The specimen is received fixed in formalin in one container, labeled with the patient's name, Helder Giron, and right back mass and consists of a 2.7 x 2.6 x 1.4 cm portion of lateral, yellow-martinez, fatty tissue. Attached to one surface is a 2.1 x 0.8 cm ellipse of lópez-martinez skin. The skin is wrinkled. The specimen is unoriented and the margin is inked entirely in blue. Cut surface reveals lateral, yellow fatty tissue throughout with no areas of hemorrhage or necrosis. A rental sales representative cross section including skin and underlying fatty tissue is submitted in cassette A1. /chayito 02/06/2017 3:19 PM CDT [facility] Microscopic Description Section labeled right back mass show skin and mature adipose tissue. Skin is surfaced by squamous epithelium displaying normal maturation. Malignancy is not seen. Changes are consistent with lipoma. /mihai 02/06/2017 3:19 PM T [facility] Disclaimer All histochemical and/or immunohistochemical results are interpreted with controls that demonstrate appropriate staining reactions before reporting results. Note on use of immunocytochemistry reagents: This test was developed and its performance characteristic determined by [facility], Department of Laboratory Medicine. It has not been cleared or approved by the U.S. Food and Drug Administration (FDA). The FDA has determined that such clearance or approval is not necessary. The test is used for clinical purpose. It should not be regarded as investigational or for research. This laboratory is certified to perform high complexity testing. 02/06/2017 3:19 PM CDT [facility] Embedded Images 02/06/2017 3:19 PM CDT [facility] Pathology/Cytolo gy MASS / Unknown 02/05/2017 8:14 AM CDT 02/05/2017 11:06 AM CDT Elder Sol MD LAB - PATHOLOGY/ CYTOLOGY ORDERABLES [facility] [id number] [place] [id number] * PROTEIN URINE TIMED QUANTITATIVE (05/01/2016) Urine TIMED URINE SPECIMEN / Unknown 05/01/2016 Lamin Saucedo MD LAB - URINE CHEMISTR Y ORDERABLES OTHER LAB * XR ABDOMEN AP AND OBL (04/16/2016 8:51 AM ANALYTICAL SCIENTIST) Anatomical Region Laterality Modality Abdomen Radiographic Christine ging 04/16/2016 9:19 AM ANALYTICAL SCIENTIST Narrative 04/16/2016 9:20 AM ANALYTICAL SCIENTIST Abdomen AP and Bilateral Obliques Indication: Renal Stone Findings: There are multiple stable calculi overlying the lower pole of the right kidney. The largest measures 4 x 2 mm. No definite ureteral calculus. Bowel gas pattern is normal although does obscure portion of both kidneys. Procedure Note Maryse Wagner MD - 04/16/2016 Abdomen AP and Bilateral Obliques Indication: Renal Stone Findings: There are multiple stable calculi overlying the lower pole of the right kidney. The largest measures 4 x 2 mm. No definite ureteral calculus. Bowel gas pattern is normal although does obscure portion of both kidneys. Lamin Saucedo MD DIAGNOSTIC IMAGING O RDERABLES * CARDIAC RHYTHM STRIP ORDER (02/16/2016 9:22 PM CDT) Narrative 02/16/2016 9:22 PM CDT Ordered by an unspecified provider. Scanned Document CARDIAC SERVICES ORD ERABLES * STONE ANALYSIS QUANT (01/16/2016 1:12 PM CDT) Color Brown [facility] ACCOUNT BILL Size 2x2x1 mm [facility] ACCOUNT BILL Weight 4.0 mg [facility] ACCOUNT BILL Composition [facility] ACCOUNT BILL Comment:Percentage (Represen ts the % composition) Calcium Oxalate Dihydrate NOT NEEDED [facility] ACCOUNT BILL Comment:Ancillary determined the test is not needed Calcium Oxalate Monohydrate 97 % [facility] ACCOUNT BILL Calcium phosphate 03 % [facility] ACCOUNT BILL Magnesium lilia phos NOT NEEDED [facility] ACCOUNT BILL Comment:Ancillary determined the test is not needed Uric Acid % NOT NEEDED [facility] ACCOUNT BILL Comment:Ancillary determined the test is not needed Uric acid dihydrate NOT NEEDED [facility] ACCOUNT BILL Comment:Ancillary determined the test is not needed Ammonium acid urate NOT NEEDED [facility] ACCOUNT BILL Comment:Ancillary determined the test is not needed Sodium Acid Urate % NOT NEEDED [facility] ACCOUNT BILL Comment:Ancillary determined the test is not needed CA hydrogen phosphate NOT NEEDED [facility] ACCOUNT BILL Comment:Ancillary determined the test is not needed Cystine % NOT NEEDED [facility] ACCOUNT BILL Comment:Ancillary determined the test is not needed Cholesterol NOT NEEDED [facility] ACCOUNT BILL Comment:Ancillary determined the test is not needed Calcium Bilirubinate NOT NEEDED [facility] ACCOUNT BILL Comment:Ancillary determined the test is not needed Calcium carbonate NOT NEEDED [facility] ACCOUNT BILL Comment:Ancillary determined the test is not needed Triamterene % Gallstone, Salivary NOT NEEDED [facility] ACCOUNT BILL Comment:Ancillary determined the test is not needed Newberyite NOT NEEDED [facility] ACCOUNT BILL Comment:Ancillary determined the test is not needed Dried Blood NOT NEEDED [facility] ACCOUNT BILL Comment:Ancillary determined the test is not needed Cellular Material NOT NEEDED [facility] ACCOUNT BILL Comment:Ancillary determined the test is not needed Nidus [facility] ACCOUNT BILL Comment:Nidus composed of Ca lcium oxalate monohydrate. Shell NOT NEEDED [facility] ACCOUNT BILL Comment:Ancillary determined the test is not needed Surface Crystals NOT NEEDED [facility] ACCOUNT BILL Comment:Ancillary determined the test is not needed Comment NOT NEEDED [facility] ACCOUNT BILL Comment:Ancillary determined the test is not needed Comment Note: [facility] ACCOUNT BILL Comment:Specimen quantity in sufficient for verification by repeat analysis. Please Note [facility] ACCOUNT BILL Comment: Calculi report without photograph will follow via computer, mail, or vp data delivery. Comment [facility] ACCOUNT BILL Comment: Physician questions regarding Calculi Analysis contact [employer] at: [phone]. Disclaimer [facility] ACCOUNT BILL Comment: This test was developed and its performance characteristics determined by [facility]. It has not been cleared or approved by the Food and Drug Administration. Miscellaneous samples (specimen) CALCULUS SPECIMEN / Unknown 01/16/2016 1:12 PM CDT 01/16/2016 9:35 PM CDT Narrative Resulting Agency Comment [facility] [address] [id number] Lamin Saucedo MD LAB - URINE CHEMISTR Y ORDERABLES [facility] ACCOUNT BILL [address] [place] [address] * US RETROPERITONEAL LIMITED (10/12/2014 8:56 AM CDT) Anatomical Region Laterality Modality Abdomen Ultrasound 10/12/2014 12:4 3 PM CDT Impressions 10/12/2014 1:53 PM CDT Nonobstructing calculus on the right midpole, otherwise unremarkable. Edited by Huma Goodwin on 10/12/2014 1:24 PM Narrative 10/12/2014 1:53 PM CDT ULTRASOUND RETROPERITONEUM KIDNEYS AND URINARY BLADDER Indication: Hematuria. Grayscale ultrasound of the kidneys and urinary bladder performed. Both kidneys are of normal size and echogenicity. The right kidney measures 12.7 x 5.3 x 4.5 cm. The left kidney measures 12.3 x 4.8 x 4.2 cm. A cyst is present at the midpole of the left kidney which is small measuring 1.2 x 0.9 x 1.1 cm. In the lower pole collecting system is an echogenic density measuring 1.2 x 1.0 cm which may be a small calculus, nonobstructing. The bladder distends normally. Bilateral ureteral jets are seen. Procedure Note Ting Ramirez MD - 10/12/2014 ULTRASOUND RETROPERITONEUM KIDNEYS AND URINARY BLADDER Indication: Hematuria. Grayscale ultrasound of the kidneys and urinary bladder performed. Both kidneys are of normal size and echogenicity. The right kidney measures 12.7 x 5.3 x 4.5 cm. The left kidney measures 12.3 x 4.8 x 4.2 cm. A cyst is present at the midpole of the left kidney which is small measuring 1.2 x 0.9 x 1.1 cm. In the lower pole collecting system is an echogenic density measuring 1.2 x 1.0 cm which may be a small calculus, nonobstructing. The bladder distends normally. Bilateral ureteral jets are seen. IMPRESSION Nonobstructing calculus on the right midpole, otherwise unremarkable. Edited by Huma Goodwin on 10/12/2014 1:24 PM Bryan Kincaid MD US ORDERABLES * CBC W AUTO DIFFERENTIAL (03/21/2014 9:41 AM CDT) Only the most recent of5 resultswithin the time period is included. WBC 7.8 3.4 - 10.8 x10E3/uL [facility] ACCOUNT BILL RBC 4.91 4.14 - 5.80 x10E6/uL [facility] ACCOUNT BILL Hemoglobin 15.1 12.6 - 17.7 g/dL [facility] ACCOUNT BILL Hematocrit 44.7 37.5 - 51.0 % [facility] ACCOUNT BILL MCV 91 79 - 97 fL [facility] ACCOUNT BILL MCH 30.8 26.6 - 33.0 pg [facility] ACCOUNT BILL MCHC 33.8 31.5 - 35.7 g/dL [facility] ACCOUNT BILL RDW 13.2 12.3 - 15.4 % [facility] ACCOUNT BILL Platelet Count 253 150 - 379 x10E3/uL [facility] ACCOUNT [facility]ILL Granulocytes % 64 % [facility] ACCOUNT BILL Lymphocytes % 26 % [facility] Monocytes % 8 % [facility] ACCOUNT BILL Eosinophils % 2 % [facility] Basophils % 0 % [facility] ACCOUNT BILL Immature Cells NOT NEEDED [facility]OUNT [facility] Comment:Ancillary determined the test is not needed Granulocytes Absolute 5.0 1.4 - 7.0 x10E3/uL [facility] ACCOUNT BILL Lymphocytes Absolute 2.1 0.7 - 3.1 x10E3/uL [facility] ACCOUNT BILL Monocytes Absolute 0.6 0.1 - 0.9 x10E3/uL [facility] ACCOUNT BILL Eosinophils Absolute 0.1 0.0 - 0.4 x10E3/uL [facility] ACCOUNT BILL Basophils Absolute 0.0 0.0 - 0.2 x10E3/uL [facility] ACCOUNT BILL Immature Granulocytes 0 % [facility] ACCOUNT BILL Immature Granulocytes Absolute 0.0 0.0 - 0.1 x10E3/uL [facility] ACCOUNT BILL nRBC NOT NEEDED [facility] ACCOUNT BILL Comment:Ancillary determined the test is not needed Comment Hematology NOT NEEDED [facility] ACCOUNT BILL Comment:Ancillary determined the test is not needed Blood specimen (specimen) BLOOD SPECIMEN / Unknown 03/21/2014 9:41 AM CDT 03/21/2014 1:06 PM CDT Narrative Resulting Agency Comment [facility] [address] [phone] Emiliano Cristobal MD LAB - HEMATOLOGY ORD [place] Performing Organization Address [facility] Co de Phone Number [facility] ACCOUNT BILL * (ABNORMAL) VITAMIN D 25-HYDROXY (03/21/2014 9:39 AM CDT) Vitamin D, 25 Hydroxy 21.0(L) 30.0 - 100.0 ng/mL [facility] ACCOUNT BILL Comment: Vitamin D deficiency has been defined by the [place] of [employer] and an Endocrine Society practice guideline as a level of serum 25-OH vitamin D less than 20 ng/mL (1,2). The Endocrine Society went on to further define vitamin D insufficiency as a level between 21 and 29 ng/mL (2). 1. IOM ([place] of Medicine). 2010. Dietary reference intakes for calcium and D. [place]: The National Academies Press. 2. Marija MF, Bailey [place], Angel HENRY, et al. Evaluation, treatment, and prevention of vitamin D deficiency: an Endocrine Society clinical practice guideline. JCEM. 2010; 96(7):1911-30. Blood specimen (specimen) BLOOD SPECIMEN / Unknown 03/21/2014 9:39 AM CDT 03/21/2014 1:06 PM CDT Narrative Resulting Agency Comment [facility] [address] [phone] Emiilano Cristobal MD LAB - CHEMISTRY [place] Performing Organization Address City/[facility]/ZIP Co de Phone Number [facility] ACCOUNT BILL * (ABNORMAL) COMPREHENSIVE METABOLIC PANEL (03/21/2014 9:39 AM CDT) Only the most recent of4 resultswithin the time period is included. Glucose 96 65 - 99 mg/dL [facility] ACCOUNT BILL BUN 15 6 - 24 mg/dL [facility] ACCOUNT BILL Creatinine 0.90 0.76 - 1.27 mg/dL [facility] ACCOUNT BILL eGFR by MDRD 104 >59 mL/min/1.7 3 [facility] ACCOUNT BILL eGFR by MDRD 121 >59 mL/min/1.7 3 [facility] ACCOUNT BILL BUN/Creatinine Ratio 17 9 - 20 [facility] ACCOUNT BILL Sodium 138 134 - 144 mmol/L [facility] ACCOUNT BILL Potassium 4.0 3.5 - 5.2 mmol/L [facility] ACCOUNT BILL Chloride 97 97 - 108 mmol/L [facility] ACCOUNT BILL CO2 23 18 - 29 mmol/L [facility] ACCOUNT BILL Calcium 9.5 8.7 - 10.2 mg/dL [facility] ACCOUNT BILL Protein Total 7.2 6.0 - 8.5 g/dL [facility] ACCOUNT BILL Albumin 4.7 3.5 - 5.5 g/dL [facility] ACCOUNT BILL Globulin Total 2.5 1.5 - 4.5 g/dL [facility] ACCOUNT BILL Albumin/Globulin Ratio 1.9 1.1 - 2.5 [facility] ACCOUNT BILL Bilirubin Total 0.9 0.0 - 1.2 mg/dL [facility] ACCOUNT BILL Alkaline Phosphatase 73 39 - 117 IU/L [facility] ACCOUNT BILL AST 50(H) 0 - 40 IU/L [facility] ACCOUNT BILL ALT 104(H) 0 - 44 IU/L [facility] ACCOUNT BILL Blood specimen (specimen) BLOOD SPECIMEN / Unknown 03/21/2014 9:39 AM CDT 03/21/2014 1:06 PM CDT Narrative Resulting Agency Comment [facility] [address] [phone] Emiliano Cristobal MD LAB - CHEMISTRY [place] [facility] ACCOUNT BILL * PROSTATE SPECIFIC ANTIGEN SCREEN (03/21/2014 9:39 AM CDT) PSA 0.5 0.0 - 4.0 ng/mL [facility] ACCOUNT BILL Comment: Eve ECLIA methodology. . According to the [place] [employer], Serum PSA should decrease and remain at undetectable levels after radical prostatectomy. The AUA defines biochemical recurrence as an initial PSA value 0.2 ng/mL or greater followed by a subsequent confirmatory PSA value 0.2 ng/mL or greater. Values obtained with different assay methods or kits cannot be used interchangeably. Results cannot be interpreted as absolute evidence of the presence or absence of malignant disease. Blood specimen (specimen) BLOOD SPECIMEN / Unknown 03/21/2014 9:39 AM CDT 03/21/2014 1:06 PM CDT Narrative Resulting Agency Comment [address] [phone] Emiliano Cristobal MD LAB - CHEMISTRY [place] Performing Organization Address [facility] Co de Phone Number [facility] ACCOUNT BILL * TSH (03/21/2014 9:39 AM CDT) Only the most recent of4 resultswithin the time period is included. TSH 2.040 0.450 - 4.500 uIU/mL [facility] ACCOUNT BILL Comment NOT NEEDED [facility] ACCOUNT BILL Comment:Ancillary determined the test is not needed Blood specimen (specimen) BLOOD SPECIMEN / Unknown 03/21/2014 9:39 AM CDT 03/21/2014 1:06 PM CDT Narrative Resulting Agency Comment [address] [phone] Emiliano Cristobal MD LAB - CHEMISTRY [place] [facility] ACCOUNT BILL * (ABNORMAL) LIPID PROFILE (03/21/2014 9:39 AM CDT) Only the most recent of2 resultswithin the time period is included. Cholesterol 196 100 - 199 mg/dL [facility] ACCOUNT BILL Triglycerides 145 0 - 149 mg/dL [facility] ACCOUNT BILL HDL Cholesterol 43 >39 mg/dL [facility] ACCOUNT B[facility] Comment: According to ATP-III Guidelines, HDL-C >59 mg/dL is considered a negative risk factor for CHD. VLDL Calculated 29 5 - 40 mg/dL [facility] ACCOUNT BILL LDL Calculated 124(H) 0 - 99 mg/dL [facility] ACCOUNT BILL Comment NOT NEEDED [facility] ACCOUNT BILL Comment:Ancillary determined the test is not needed Blood specimen (specimen) BLOOD SPECIMEN / Unknown 03/21/2014 9:39 AM CDT 03/21/2014 1:06 PM CDT Narrative Resulting Agency Comment [facility] [address] [phone] Emiliano Cristobal MD [facility] ACCOUNT BILL * (ABNORMAL) URINALYSIS AUTO - POINT OF CARE (03/21/2014) Clarity UA POCT Color UA POCT Leukocyte UA neg Negative Nitrite UA POCT neg Negative Urobilinogen UA 0.1 0.1 - 1.0 Protein UA POCT negative Negative pH UA 7.0 5.0 - 8.0 pH units Blood UA postive Negtive Specific [place] UA POCT 1.015 1.002 - 1.030 Ketone UA positive Negative Bilirubin UA POCT negative Negative Glucose UA negative Negative Urine specimen (specimen) URINE / Unknown 03/21/2014 Emiliano Cristobal MD LAB - POINT OF CARE ORDERABLES * CT ABDOMEN AND PELVIS NON IV CONTRAST (07/13/2012 10:07 AM ANALYTICAL SCIENTIST) Anatomical Region Laterality Modality Abdomen, Pelvis Computed Tomogra phy 07/13/2012 10:2 7 AM ANALYTICAL SCIENTIST Impressions 07/13/2012 10:50 AM ANALYTICAL SCIENTIST Solitary nonobstructing right intrarenal calculus, 9 mm. Narrative 07/13/2012 10:[address] abdomen and pelvis, noncontrast DATE: 07/13/2012 INDICATION: Hematuria and rectal bleeding. TECHNIQUE: Multidetector nonenhanced CT through the abdomen and pelvis with axial and coronal reformations. Stone protocol. FINDINGS: In the right lower renal pole there is a solitary nonobstructing calculus measuring 9 x 6 x 9 mm. There are no additional intrarenal stones and no hydronephrosis or perinephric stranding. The ureters and urinary bladder are unremarkable. Within the limits of a nonenhanced study the liver, spleen, pancreas, gallbladder and adrenal glands are unremarkable. There is no adenopathy or ascites. Scattered stool is noted throughout the colon but without visible mass or inflammatory change. The appendix and small bowel are unremarkable. There is no hernia. The lung bases are clear. Procedure Note Nemesio Marcelino MD - 07/13/2012 CT abdomen and pelvis, noncontrast DATE: 07/13/2012 INDICATION: Hematuria and rectal bleeding. TECHNIQUE: Multidetector nonenhanced CT through the abdomen and pelvis with axial and coronal reformations. Stone protocol. FINDINGS: In the right lower renal pole there is a solitary nonobstructing calculus measuring 9 x 6 x 9 mm. There are no additional intrarenal stones and no hydronephrosis or perinephric stranding. The ureters and urinary bladder are unremarkable. Within the limits of a nonenhanced study the liver, spleen, pancreas, gallbladder and adrenal glands are unremarkable. There is no adenopathy or ascites. Scattered stool is noted throughout the colon but without visible mass or inflammatory change. The appendix and small bowel are unremarkable. There is no hernia. The lung bases are clear. IMPRESSION Solitary nonobstructing right intrarenal calculus, [address] MD [address] ORDERABLES * URIC ACID BLOOD (07/13/2012 9:58 AM ANALYTICAL SCIENTIST) Uric Acid 5.9 3.5 - 8.5 mg/dL 07/13/2012 10:55 AM ANALYTICAL SCIENTIST [facility] Blood specimen (specimen) BLOOD SPECIMEN / Unknown 07/13/2012 9:58 AM ANALYTICAL SCIENTIST 07/13/2012 10:07 AM ANALYTICAL SCIENTIST Andre Diane MD LAB - CHEMISTRY [place] [facility] Organization Address City/State/ZIP Co de Phone Number [facility] [address] [place] [address] * PTT (07/13/2012 9:57 AM ANALYTICAL SCIENTIST) PTT 30.8 24.0 - 33.0 sec 07/13/2012 10:56 AM [facility] Blood specimen (specimen) BLOOD SPECIMEN / Unknown 07/13/2012 9:57 AM ANALYTICAL SCIENTIST 07/13/2012 10:07 AM [facility] Andre Diane MD LAB - COAGULATION OR DERABLES Performing Organization Address [facility] Co de Phone Number [facility] [address] [place] [phone] * PT-INR (07/13/2012 9:57 AM [facility]) PT 10.8 9.4 - 11.4 sec 07/13/2012 10:56 AM [facility] INR 1.03 0.88 - 1.07 07/13/2012 10:56 AM [facility] Blood specimen (specimen) BLOOD SPECIMEN / Unknown 07/13/2012 9:57 AM ANALYTICAL SCIENTIST 07/13/2012 10:07 AM ANALYTICAL SCIENTIST Narrative [facility] - 07/13/2012 10:56 AM [facility] Conventional Anticoagulant Therapy INR Reference Ranges: 2.0-3.0 Intensive Anticoagulant Therapy INR Reference Ranges: 2.5-3.5 Andre Diane MD LAB - COAGULATION OR DERABLES Performing Organization Address [facility] de Phone Number [facility] [address] [place] [phone] * (ABNORMAL) URINALYSIS ROUTINE AUTO (07/13/2012 9:56 AM [facility]) Color UA Red(A) Straw, Yellow, Dark Yellow 07/13/2012 10:40 AM [facility] Clarity UA Clear (none) 07/13/2012 10:40 AM [facility] Specific [place] UA 1.030 1.005 - 1.030 07/13/2012 10:40 AM [facility] pH UA 5.0 5.0 - 8.0 07/13/2012 10:40 AM [facility] Protein UA Negative Negative 07/13/2012 10:40 AM [facility] Blood UA 2+(A) Negative 07/13/2012 10:40 AM [facility] Leukocyte UA Trace(A) Negative 07/13/2012 10:40 AM [facility] Nitrite UA Negative Negative 07/13/2012 10:40 AM ANALYTICAL SCIENTIST [facility] Glucose UA Negative Negative 07/13/2012 10:40 AM [facility] Ketone UA Trace(A) Negative 07/13/2012 10:40 AM [facility] Bilirubin UA Negative Negative 07/13/2012 10:40 AM [facility] Urobilinogen UA 0.2 0.1 - 1.0 EU/dL 07/13/2012 10:40 AM ANALYTICAL SCIENTIST [facility] WBC UA Auto 0-2 0-2, 2-5 #/hpf 07/13/2012 10:40 AM [facility] RBC UA Auto 20-50(A) 0-2, 2-5 #/hpf 07/13/2012 10:40 AM [facility] Epithelial Cell UA Auto 0-2 0-2, 2-5 #/hpf 07/13/2012 10:40 AM [facility] Urine specimen (specimen) URINE / Unknown 07/13/2012 9:56 AM ANALYTICAL SCIENTIST 07/13/2012 10:07 AM ANALYTICAL SCIENTIST Andre Diane MD LAB - URINALYSIS ORD ERABLES [facility] [address] [place] [phone] * T3 FREE (10/18/2011 8:15 AM CDT) Only the most recent of2 resultswithin the time period is included. T3 Free 3.20 2.18 - 3.98 pg/ml [facility] BLOOD SPECIMEN / Unknown 10/18/2011 8:15 AM CDT 10/18/2011 8:15 AM CDT Andre Diane MD LAB - CHEMISTRY [place] [facility] [address] [place] [address] * T4 FREE (10/18/2011 8:15 AM CDT) Only the most recent of2 resultswithin the time period is included. T4 Free 1.18 0.65 - 1.34 ng/dl [facility] BLOOD SPECIMEN / Unknown 10/18/2011 8:15 AM CDT 10/18/2011 8:15 AM CDT Andre Diane MD LAB - CHEMISTRY [place] Performing Organization Address City/[facility] Co de Phone Number [facility] [address] [place] [phone] * T3 TOTAL (08/21/2011 4:00 AM CDT) [facility] T3 Total 1.34 0.7 - 1.9 ng/mL [facility] BLOOD SPECIMEN / Unknown 08/21/2011 4:00 AM CDT 08/23/2011 11:11 AM CDT Ander Diane MD LAB - CHEMISTRY [place] Performing Organization Address [facility] de Phone Number [facility] [address] [place] [phone] * HEPATITIS C ANTIBODY (07/01/2011 6:35 AM ANALYTICAL SCIENTIST) Only the most recent of2 resultswithin the time period is included. [facility] Hepatitis C Antibody Screen Nonreactive Nonreactive [facility] BLOOD SPECIMEN / Unknown 07/01/2011 6:35 AM ANALYTICAL SCIENTIST 07/01/2011 6:37 AM ANALYTICAL SCIENTIST Chano Johnson MD LAB - CHEMISTRY [place] Performing Organization Address [facility] de Phone Number [facility] [address] [place] [phone] * HEPATITIS C RNA QUALITATIVE PCR (03/13/2011 4:05 AM CDT) [facility] Hepatitis C Virus RNA Qualitative Not Detected Not Detected [facility] Comment Ref Lab [facility] Comment: Comments and Normal Ranges for Component HCV RNA Qual TEST INFORMATION/ Hepatitis C RNA, Qual by PCR The lower limit of detection is 50 IU/mL. An internal control monitors the specimen for inadequate specimen extraction or the presence of inhibitors in the specimen. False positive results may occur. A negative result does not rule out the presence of PCR inhibitors in the patient specimen or hepatitis C virus RNA concentrations below the limit of detection by the assay. This assay should not be used for blood donor screening, associated re-entry protocols, or for screening Human Cell, Tissues and Cellular Tissue-Based Products (HCT/P). BLOOD SPECIMEN / Unknown 03/13/2011 4:05 AM CDT 03/13/2011 4:14 AM CDT Narrative Resulting Agency Comment Performed By [employer] [address] [place], [place] [address] Chano Johnson MD LAB - SEROLOGY ORDER CADE Performing Organization Address [facility] Co de Phone Number [facility] [address] [place] [phone] * HEPATIC FUNCTION PANEL (03/13/2011 4:05 AM CDT) Only the most recent of4 resultswithin the time period is included. Alkaline Phosphatase 77 38 - 126 U/L [facility] AST 27 5.0 - 40 U/L [facility] Bilirubin Total 0.6 0.2 - 1.0 mg/dl [facility] Albumin 4.1 3.4 - 5.0 gm/dl [facility] ALT 68 12.0 - 78.0 U/L [facility] Bilirubin Direct < 0.1 <0.3 mg/dl [facility] Protein Total 7.8 6.4 - 8.2 gm/dl [facility] BLOOD SPECIMEN / Unknown 03/13/2011 4:05 AM CDT 03/13/2011 4:14 AM CDT Chano Johnson MD LAB - CHEMISTRY [place] Performing Organization Address [facility] Co de Phone Number [facility] [address] [place] [phone] * HIV-1 HIV-2 ANTIBODY (12/08/2010 6:22 AM CDT) Pathologist [facility] HIV-1/HIV-2 Nonreactive Nonreactive [facility] BLOOD SPECIMEN / Unknown 12/08/2010 6:22 AM CDT 12/08/2010 6:23 AM CDT Provider Unknown LAB - CHEMISTRY [place] Performing Organization Address [facility] Co de Phone Number [facility] [address] [place] [phone] * HEPATITIS B SURFACE ANTIBODY (12/08/2010 6:22 AM CDT) Hepatitis B Virus Surface Antibody Reactive Nonreactive [facility] BLOOD SPECIMEN / Unknown 12/08/2010 6:22 AM CDT 12/08/2010 6:23 AM CDT Provider Unknown LAB - CHEMISTRY [place] Performing Organization Address City/[facility]/ZIP Co de Phone Number [facility] [address] [place] [address] * (ABNORMAL) LIPID PROFILE W LDL/HDL (PO REF LAB) (06/03/2008 10:15 AM ANALYTICAL SCIENTIST) Cholesterol 194 100 - 199 mg/dL [facility] ACCOUNT BILL Triglycerides 130 0 - 149 mg/dL [facility] ACCOUNT BILL HDL Cholesterol 41 >39 mg/dL [facility] ACCOUNT B[facility] Comment: According to ATP-III Guidelines, HDL-C >59 mg/dL is considered a negative risk factor for CHD. VLDL Calculated 26 5 - 40 mg/dL [facility] ACCOUNT BILL LDL Calculated 127(H) 0 - 99 mg/dL [facility] ACCOUNT BILL Comment [facility] ACCOUNT BILL Comment: If initial LDL-cholesterol result is >100 mg/dL, assess for risk factors. LDL/HDL Ratio 3.1 0.0 - 3.6 ratio units [facility] ACCOUNT BILL 06/03/2008 10:1 5 AM ANALYTICAL SCIENTIST 06/03/2008 5:30 PM ANALYTICAL SCIENTIST Narrative Resulting Agency Comment [facility] [address] [phone] Andre Diane MD LAB - CHEMISTRY [place] [facility] ACCOUNT BILL Care Teams Med Dir Relationship Specialty Start Date End Date Andre Diane MD PCP - General 06/04/21
--- OUTSIDE RECORDS SUMMARY | 2024-08-02 01:39 | XMS_ITS | Encounter Summary ---
Author Organization [facility] Address [address] [place] [address] Care Team Providers Care Expanded Duty Dental Assistant Name Role Phone Bryan Kincaid MD Primary Care Provider [phone] Andre Diane MD Primary Care Provider Unavailabl e Bryan Kincaid MD Primary Care Provider [phone] Andre Diane MD Primary Care Provider Unavailabl e Reason for Visit * Reason Onset Date Comments MEDICATION REFILL 06/07/2019 Encounter Details Date Type Department Care Team (Late st Contact Info) Description 06/07/2019 Refill [facility] [address] [place] [address] Jessie Juarez, PharmD MEDICATION REFILL Social History Tobacco Use Types Packs/Day Years Used Date Smoking Tobacco: Never Smokeless Tobacco: Never Alcohol Use Standard Drinks/Week Comments No 0 (1 standard drink = 0.6 oz pur e alcohol) Sex and Gender Information Value Date Recorded Sex Assigned at Not on file Gender Identity Not on file Sexual Orientation Not on file documented as of this encounter Functional Status Functional Status Response Date of Assess ment Is person deaf or have serious hearing difficult y? No 02/05/2017 Is person blind or have serious difficulty seein g? No 02/05/2017 Does person have serious dif ficulty walking/climbing stairs? No 02/05/2017 Does person have difficulty dressing/bathing? No 02/05/2017 Does person have difficulty doing errands alone? No 02/05/2017 Cognitive Status Response Date of Assessm ent Does person have difficulty concentrating/remembering/making decisions? No 02/05/2017 documented as of this encounter Plan of Treatment Not on file documented as of this encounter Visit Diagnoses Not on filedocumented in this encounter Care Teams Expanded Duty Dental Assistant Relationship Specialty [place] [address] [place] [phone] PCP - General Internal Medicine 10/12/14 08/04/19 [place] [address] [place] [address] PCP - General 08/05/19 10/31/20 [place] [address] [place] [address] PCP - General Internal Medicine 11/01/20 06/03/21 [place] [address] [place] [address] PCP - General 06/04/21 documented as of this encounter
--- OUTSIDE RECORDS SUMMARY | 2024-08-02 01:39 | XMS_ITS | Referral Summary ---
Author Organization [facility] Address [address] [place] [address] Care Team Providers Care Bin Worker Name Role Phone Andre Diane MD Primary Care Provider Unavailabl e Source Comments [facility],non-owned Affiliates and Associated Physician Practices is amultiple site organization consisting of ambulatory clinics and hospital sitesin [place], [place], [place] and [place]. This disclosure is being madepursuant to the Care Everywhere program and may not contain all information available regarding this patient. Last updated 18.[facility] Allergies No known active allergies Medications * Be aware that medications may not be up to date on this document. Alwaysverify current medications with the patient. Medication Sig Dispensed Refills Start Date End Date Status penciclovir (DENAVIR) 1 % cream Apply to affected area every 2 hours while awake. 5 g 11 05/03/2014 Active levothyroxine (SYNTHROID) 25 MCG tablet TAKE 1 TABLET BY MOUTH EVERY DAY 90 Tab 0 08/11/2014 Active modafinil (PROVIGIL) 200 MG tablet Take 200 mg by mouth once daily Active benzonatate (TESSALON) 100 MG capsuleIndications:C ough Take 1 capsule by mouth 3 times daily as needed for Cough Reasons: Cough 30 capsule 12/05/2018 Active Active Problems Problem Noted Date Diagnosed Date [...] Mass Index 31.52 12/05/2018 2:31 PM CDT Functional Status Functional Status Response Date of [...] person have difficulty concentrating/remembering/making decisions? No 02/05/2017 Plan of Treatment Not on file Procedures Procedure Name Priority Date/Time Associated Diagnosis Comments COMPREHENSIVE METABOLIC PANEL Routine 03/21/2014 9:39 AM CDT Hypothyroidism Obesity LIPID PROFILE Routine 03/21/2014 9:39 AM CDT Lipid screening HEPATITIS C ANTIBODY Routine 07/01/2011 6:35 AM PUBLIC WORKS INSPECTOR HIV-1 HIV-2 ANTIBODY Routine 12/08/2010 6:22 AM CDT from Last 3 Months or Most Recently Relevant to Health Maintenance Results * (ABNORMAL) COMPREHENSIVE METABOLIC PANEL (03/21/2014 9:39 AM CDT) Glucose 96 65 - 99 mg/dL [facility] [...] PM CDT Narrative Resulting Agency Comment [facility] [address] [id number] Emiliano Cristobal MD LAB - CHEMISTRY [place] [facility] Organization Address City/State/ZIP Co de Phone Number [facility] ACCOUNT BILL * (ABNORMAL) LIPID PROFILE (03/21/2014 9:39 AM CDT) Cholesterol 196 100 - 199 mg/dL [facility] [...] PM CDT Narrative Resulting Agency Comment [facility] [place] [id number] [facility] [id number] Emiliano Cristobal MD LAB - CHEMISTRY [place] Performing Organization Address City/[facility]/ZIP Co de Phone Number [facility] ACCOUNT BILL * HEPATITIS C ANTIBODY (07/01/2011 6:35 AM PUBLIC WORKS INSPECTOR) Hepatitis C Antibody Screen Nonreactive Nonreactive [facility] BLOOD SPECIMEN / Unknown 07/01/2011 6:35 AM PUBLIC WORKS INSPECTOR 07/01/2011 6:37 AM PUBLIC WORKS INSPECTOR Chano Johnson MD LAB - CHEMISTRY [place] Performing Organization Address City/[facility] Co de Phone Number [facility] [address] [place] [address] * HIV-1 HIV-2 ANTIBODY (12/08/2010 6:22 AM CDT) HIV-1/HIV-2 Nonreactive Nonreactive [facility] BLOOD SPECIMEN / Unknown 12/08/2010 6:22 AM CDT 12/08/2010 6:23 AM CDT Provider Unknown LAB - CHEMISTRY [place] Performing Organization Address [facility] Co de Phone Number [facility] [address] [place] [address] from Last 3 Months or Most Recently Relevant to Health Maintenance Care Teams Bin Worker Relationship Specialty Start Date End Date Andre Diane MD PCP - General 06/04/21
--- OUTSIDE RECORDS SUMMARY | 2024-08-02 01:39 | XMS_ITS ---
Author Organization [facility] Address [address] [facility] [address] [facility] [address] [place] [address] Care Team Providers Care Assembler Radio And Electrical Name Role Phone Lukas Padilla MD Primary Care Provider UnavailJasmin Gonzales Unavailable [phone] REASON FOR VISIT Refill Medications Medication SIG (Take, Route, Frequency, Duration) Notes Start Date End Date Status Amphetamine-Dextroamph et ER 25 MG 1 capsule in the morning Orally Once a day for 30 days d/c 20 mg dose 07/08/2024 Active Social History Sex Assigned At : Social History Observation Description Sex Assigned At Male Encounters Encounter Location Date Provider Diagnosis [facility] [address] [facility] [address] [facility] [address] [place] [address] 07/08/2024 Jasmin Tang ADHD (attention deficit hyperactivity disorder), combined type F90.2 Assessments Encounter Date Diagnosis (ICD Code) Assessment Notes Treatment Notes Treatment Clinical Notes Section Notes 07/08/2024 ADHD (attention deficit hyperactivity disorder), combined type (ICD-10 - F90.2) Plan Of Treatment Medication Medication Name Sig Start Date Stop Date Notes Amphetamine-Dextroamphet ER 25 MG 1 capsule in the morning Orally Once a day for 30 days 07/08/2024 d/c 20 mg dose Next Appt Details Provider Name:Jasmin Tang , 09/06/2024 08:15:00 AM, [address], [facility] [address], [place], [address], Progress Notes * Glenn GIRONOB: [birth year] (54 yo M)Acc No.[id number]:07/08/2024 Patient: Taryn Helder DAVIES :1970 A ge:54 Y S ex:Male Phone: Address:[facility] [place], [address] * Refills Refill Amphetamine-Dextroamphet ER Capsule Extended Release 24 Hour, 25 MG, Orally, 30, 1 capsule in the morning, Once a day, 30 days, Refills=0 Subjective: * Chief Complaints: * R efill * Medical History: * Surgical History: * Hospitalization/Major Diagno stic Procedure: * Medications: Objective: * Vitals: * Physical Examination: Assessment: * Assessment: 1. A DHD (attention deficit hyperactivity disorder), combined type - F90.2 Plan: * Treatment: * Procedure Codes: E RX CONTROLLED SUBSTANCE ERX * true * Date: Generated for Nora greco/Darrion/Chencho on: 0 08/02/2024 01:38 AM CDT
--- OUTSIDE RECORDS SUMMARY | 2024-08-02 01:39 | XMS_ITS | Encounter Summary ---
Author Organization [facility] Health Address [address] [facility] [place] [address] Care Team Providers Care Documentation Liaison Name Role Phone Emiliano Cristobal MD Primary Care Provider [phone] Bryan Kincaid MD Primary Care Provider Andre Diane MD Primary Care Provider Unavailabl e Bryan Kincaid MD Primary Care Provider [phone] Andre Diane MD Primary Care Provider Unavailabl e Encounter Details Date Type Department Care Team (Late st Contact Info) Description 05/12/2014 [facility] Emiliano Cristobal MD [address] [facility] [place] [address] Social History Tobacco Use Types Packs/Day Years Used Date Smoking Tobacco: Never Smokeless Tobacco: Never Alcohol Use Standard Drinks/Week Comments Not Asked 0 (1 standard drink = 0.6 oz pur e alcohol) Sex and Gender Information Value Date Recorded Sex Assigned at Not on file Gender Identity Not on file Sexual Orientation Not on file documented as of this encounter Plan of Treatment Not on file documented as of this encounter Visit Diagnoses Not on filedocumented in this encounter Care Teams Documentation Liaison Relationship Specialty Start Date End Date Emiliano Cristobal MD PCP - General Family Medicine 02/10/14 10/11/14 [place] [address] [place] [address] PCP - General Internal Medicine 10/12/14 08/04/19 [place] [address] [place] [address] PCP - General 08/05/19 10/31/20 [place] [address] [place] [address] PCP - General Internal Medicine 11/01/20 06/03/21 [place] [address] [place] [address] PCP - General 06/04/21 documented as of this encounter
--- OUTSIDE RECORDS SUMMARY | 2024-08-02 01:39 | XMS_ITS | Encounter Summary ---
Author Organization [facility] Address [address] [facility] [place] [address] Care Team Providers Care Photogrammetric Surveyor Name Role Phone Emiliano Cristobal MD Primary Care Provider Bryan Kincaid MD Primary Care Provider Andre Diane MD Primary Care Provider Unavailabl e Bryan Kincaid MD Primary Care Provider [phone] Andre Diane MD Primary Care Provider Unavailabl e Encounter Details Date Type Department Care Team (Late st Contact Info) Description 05/12/2014 [facility] Emiliano Cristobal MD [address] [facility] [place] [address] Social History Tobacco Use Types Packs/Day Years [...] on filedocumented in this encounter Care Teams Photogrammetric Surveyor Relationship Specialty Start Date End Date Emiliano Cristobal MD PCP - General Family Medicine 02/10/14 10/11/14 [place] [address] [place] [address] PCP - General Internal Medicine 10/12/14 08/04/19 [place] [address] [place] [address] PCP - General 08/05/19 10/31/20 [place] [address] [place] [address] PCP - General Internal Medicine 11/01/20 06/03/21 [place] [address] [place] [address] PCP - General 06/04/21 documented as of this encounter
--- OUTSIDE RECORDS SUMMARY | 2024-08-02 01:39 | XMS_ITS | Clinical Summary ---
Author Organization [facility] [email or web address] Address [address] [place] [address] Care Team Providers Care Surfacer Name Role Phone Andre Diane MD Primary Care Provider Unavailabl e Source Comments [facility] [email or web address],non-owned Affiliates and Associated Physician Practices is amultiple site organization consisting of ambulatory clinics and hospital sitesin [place], [place], [place] and [place]. This disclosure is being madepursuant to the Care Everywhere program and may not contain all information available regarding this patient. Last updated 18.[facility] [email or web address] Allergies No known active allergies Medications * [...] back 02/05/2017 Rectal bleeding 07/13/2012 Hematuria 07/13/2012 Family History Medical History Relation Name Comments Asthma Mother bad/trouble Relation Name Status Comments Father Alive Mother Alive Social History Tobacco Use Types Packs/Day Years [...] Mass Index 31.52 12/05/2018 2:31 PM CDT Plan of Treatment Health Maintenance Due Date Last Done Comments COLOGUARD (AGES 45-75) - COLON CA SCREENING 1970 COLON MONITORING 1971 COLONOSCOPY - COLON CA SCREENING 1971 CT COLONOGRAPHY - COLON CA SCREENING 1971 Colorectal Cancer Screening 1971 FIT - COLON CA SCREENING 1971 FLEX SIG - COLON CA SCREENING 1971 DTAP/TDAP/TD VACCINES (1 - Tdap) 1990 HEPATITIS B VACCINE (1 of 3 - 19+ 3-dose series) 1990 SCREENING FOR DIABETES 12/05/2018 4, 07/13/2012, 08/21/2011, Additional history exists LIPID TESTING 03/21/2019 03/21/2014, 03/2 12/2011, 06/03/2008 PNEUMOCOCCAL VACCINE 50+ (1 of 1 - PCV) 2021 ZOSTER VACCINE (1 of 2) 2021 COVID-19 VACCINE (1 - 2023- season) 2024 INFLUENZA VACCINE (#1) 2024 DEPRESSION SCREENING 05/26/2024 HIV SCREENING Completed 12/08/2010 HEPATITIS C SCREENING Completed 07/01/2011 , 03/13/2011, 12/08/2010 HIB VACCINE Aged Out No longer eligi ble based on patient's age to complete this topic HPV VACCINE Aged Out No longer eligi ble based on patient's age to complete this topic MENINGOCOCCAL (Group B) VACCINE Aged Out No longer eligible based on patient's age to complete this topic MENINGOCOCCAL VACCINE Aged Out No alix sara eligible based on patient's age to complete this topic PNEUMOCOCCAL VACCINE Aged Out No long er eligible based on patient's age to complete this topic Procedures Procedure Name Priority Date/Time Associated Diagnosis Comments COMPREHENSIVE METABOLIC PANEL Routine 03/21/2014 9:39 AM CDT Hypothyroidism Obesity LIPID PROFILE Routine 03/21/2014 9:39 AM CDT Lipid screening HEPATITIS C ANTIBODY Routine 07/01/2011 6:35 AM SUPERVISOR POWDER AND PRIMER CANNING HIV-1 HIV-2 ANTIBODY Routine 12/08/2010 6:22 AM [...] CDT Narrative Resulting Agency Comment [facility] [address] [phone] Emiliano Cristobal MD LAB - CHEMISTRY [place] Performing Organization Address City/[facility]/ZIP Co de Phone Number [facility] ACCOUNT BILL * (ABNORMAL) LIPID PROFILE (03/21/2014 9:39 AM CDT) Pathologist [facility] Cholesterol 196 100 - 199 mg/dL [facility] [...] CDT Narrative Resulting Agency Comment [facility] [address] [phone] Emiliano Cristobal MD LAB - CHEMISTRY [place] Performing Organization Address City/[facility]/ZIP Co de Phone Number [facility] ACCOUNT BILL * HEPATITIS C ANTIBODY (07/01/2011 6:35 AM SUPERVISOR POWDER AND PRIMER CANNING) Pathologist [facility] Hepatitis C Antibody Screen Nonreactive Nonreactive [facility] BLOOD SPECIMEN / Unknown 07/01/2011 6:35 AM SUPERVISOR POWDER AND PRIMER CANNING 07/01/2011 6:37 AM SUPERVISOR POWDER AND PRIMER CANNING Chano Johnson MD LAB - CHEMISTRY [place] [facility] [address] [place] [address] * HIV-1 HIV-2 ANTIBODY (12/08/2010 6:22 AM CDT) HIV-1/HIV-2 Nonreactive Nonreactive [facility] BLOOD SPECIMEN / Unknown 12/08/2010 6:22 AM CDT 12/08/2010 6:23 AM CDT Provider Unknown LAB - CHEMISTRY [place] [facility] [address] [place] [address] from Last 3 Months or Most Recently Relevant to Health Maintenance Care Teams Surfacer Relationship Specialty Start Date End Date Andre Diane MD PCP - General 06/04/21
--- OUTSIDE RECORDS SUMMARY | 2024-08-02 01:39 | XMS_ITS | Patient Health Record ---
Author Organization [facility] As [employer] Address [address] [facility] [address] [place] [address] Care Team Providers Care Currency Exchange Specialist Name Role Phone Lukas Padilla MD Primary Care Provider Unavaila Jasmin Friedman Unavailable [phone] Janes Ang Unavailable [phone] Allergies No Known Allergies Results Component Value Reference Range Notes PRESCRIBED DRUGS, medMATCH(R ) ([id number]) Reviewed date:07/06/2024 03:08:32 PM Interpretation: Performing Lab:[facility]-[id number] Adama Omer, [id number] Cnonie Rose MD Notes/Report: FASTING: NO medMATCH Summary Prescribed Prescribed Not Prescribed Consistent Inconsistent Inconsistent Prescribed no testing ordered: Phentermine Prescribed Drug 1 Phentermine DRUG MONITOR,AMPHETAMINE, W/ DL, QN URINE ([id number]) Reviewed date:07/06/2024 02:56:47 PM Interpretation: Performing Lab:[facility] [id number] [facility], [place] [id number] Damoin Bourgeois, Director - [id number] [facility] OmereXpresso [place] Notes/Report: FASTING: NO Amphetamine NEGATIVE <250 ng/mL Methamphetamine NEGATIVE <250 ng/mL Amphetamines Comments See LD T Notes Notes and Comments This drug testing is for medical treatment only. Analysis was performed as non-forensic testing and these results should be used only by healthcare providers to render diagnosis or treatment, or to monitor progress of medical conditions. LDT Notes: Confirmation tests were developed and their analytical performance characteristics have been determined by [employer]. It has not been cleared or approved by the FDA. This assay has been validated pursuant to the CLIA regulations and is used for clinical purposes. medMATCH(R) enables providers to identify if drug use is consistent or inconsistent with a corresponding prescribed medication(s) list. Healthcare Providers needing Interpretation assistance, please contact us at [phone] ( ) M-F, 8am to 10pm EST UDT Reviewed date:04/19/2024 03:50:19 PM Interpretation: Performing Lab: Notes/Report: THC n 0 - 50 ng/ml Cocaine n 0 - 300 ng/ml Amphetamine p 0 - 1000 ng/ml Buprenorphine (BUP) n 0 - 10 ng/ml Secobarbital (Bar) n 0 - 300 ng/ml Oxazepam (BZO) n 0 - 300 ng/ml 9-vpmfmtinjj-8,5-hzjkfvof-2, 3-diphen ylpyrrolidine (EDDP) n 0 - 300 ng/ml Methamphetamine (MET) n 0 - 1000 ng/ml Methylenedioxymethamphetamine (MDMA) n 0 - 500 ng/ml Morphine (MOP 300/[id number]) n 0 - 300 ng/ml Methadone (MTD) n 0 - 300 ng/ml Phencyclidine (PCP) n 0 - 25 ng/ml Nortriptyline (TCA) n 0 - 1000 ng/ml Oxycodone n 0 - 300 ng/ml x n 0 - 300 ng/ml UDT Reviewed date:02/19/2024 10:15:37 AM Interpretation: Performing Lab: Notes/Report: THC N 0 - 50 ng/ml Cocaine N 0 - 300 ng/ml Amphetamine P 0 - 1000 ng/ml Buprenorphine (BUP) N 0 - 10 ng/ml Secobarbital (Bar) N 0 - 300 ng/ml Oxazepam (BZO) N 0 - 300 ng/ml 7-vsaglhksid-1,1-jpptdbkx-0, 3-diphen ylpyrrolidine (EDDP) N 0 - 300 ng/ml Methamphetamine (MET) N 0 - 1000 ng/ml Methylenedioxymethamphetamine (MDMA) N 0 - 500 ng/ml Morphine (MOP 300/JSL8996) N 0 - 300 ng/ml Methadone (MTD) N 0 - 300 ng/ml Phencyclidine (PCP) N 0 - 25 ng/ml Nortriptyline (TCA) N 0 - 1000 ng/ml Oxycodone N 0 - 300 ng/ml x N 0 - 300 ng/ml Reason For Referral No Information Medications Medication SIG (Take, Route, Frequency, Duration) [...] 20 mg dose 07/08/2024 Active Social History Tobacco Use: Social History [...] Problem Status W/U Status Risk Notes Problem 45428393 ADHD (attention deficit hyperactivity disorder), combined type (F90.2) Active confirmed Problem 54830582 Hypertension, unspecified type (I10) Active confirmed Problem 90297676 Unable to concentrate (R41.840) Active confirmed Vital Signs Heart Rate 71 /min 06/08/2024 Respiratory Rate 16 /min 02/19/2024 Height-cm 180.34 cm 06/08/2024 Blood pressure diastolic 86 mm Hg 06/08/2024 Weight-kg 99.79 kg 06/08/2024 Height 71 in 06/08/2024 Blood pressure systolic 129 mm Hg 06/08/2024 Weight 220.0 lbs 06/08/2024 BMI 30.68 kg/m2 06/08/2024 Encounters Encounter Location Date Provider Diagnosis [facility], [facility] [address] [place] [address] 02/19/2024 Jasmin Thery Unable to concentrat e R41.840 [facility] [address] [place] [address] 02/20/2024 Janes Ang Attention and concentration deficit R41.840 [facility] [address] [place] [address] 02/26/2024 Jasmin Thery ADHD (attention deficit hyperactivity disorder), combined type F90.2 [facility] [address] [place] [address] 03/25/2024 Jasmin Thery ADHD (attention deficit hyperactivity disorder), combined type F90.2 [facility] [address] [place] [address] 04/19/2024 Jasmin Thery ADHD (attention deficit hyperactivity disorder), combined type F90.2 [facility] [address] [place] [address] 05/11/2024 Jasmin Thery ADHD (attention deficit hyperactivity disorder), combined type F90.2 [facility] [address] [place] [address] 06/08/2024 Jasmin Thery ADHD (attention deficit hyperactivity disorder), combined type F90.2 [facility] [address] [place] [address] 03/09/[address] [facility] [address] [place] [address] 03/23/2024 Jasmin Thery ADHD (attention deficit hyperactivity disorder), combined type F90.2 [facility] [address] [place] [address] 04/19/2024 Jasmin Thery ADHD (attention deficit hyperactivity disorder), combined type F90.2 [facility] [address] [place] [address] 06/07/2024 Jasmin Thery ADHD (attention deficit hyperactivity disorder), combined type F90.2 and Other specified attention deficit hyperactivity disorder (ADHD) 314.01 [facility] [address] [place] [address] 07/08/2024 Jasmin Tang ADHD (attention deficit hyperactivity disorder), combined type F90.2 Assessments Encounter Date Diagnosis (ICD Code) Assessment Notes Treatment Notes Treatment Clinical Notes Section Notes 03/23/2024 ADHD (attention deficit hyperactivity disorder), combined type (ICD-10 - F90.2) Electronic Prior Authorization was requested for Qelbree 200 MG Capsule Extended Release 24 Hour. Provider can order medication once approval received. 02/26/2024 ADHD (attention deficit hyperactivity disorder), combined type [...] to have Wellbutrin discuss and educated on Qelbree 200 mg daily in am PA sent samples given educated on stimulates and not to take Phertermine with stimulates patient reported takes Vit K2, MTV, Milk [...] abuse, and addiction before prescribing stimulant medicines. Cota patients not to share their prescribed stimulant [...] warranted by the prescribed dosage. Random UDS [place] prescription reviewed local pharmacy in [place], no early refills on control substance educated on non-stimulate and stimulates SEEN PCP with B/P educated on healthy b/p 120/80 monitor b/p at home refer to PCP, heart healthy diet and excise limit salt intake and caffeine Cannabis/marijuan a information: http_s://mary ellen.nih .gov/publications /drugfacts/cannab is-marijuana http_s://www.[employer]: [employer]/canna qhl-dfl-fexlntug- marijuana-adhd/ http_s://www.gunner .org/About-Mental -Illness/Mental-H ealth-Conditions http_s://Friendsee/depressi on/the-cognitive- oxvzatzi-ko-wfhmr ssion#treatments http__s://www.[facility].nih.gov/health/ topics/mental-hea lth-medications http__s://www.nam i.org/About-Menta l-Illness/Treatme nts/Mental-Health -Medications [...] potential neurotoxicity and interactions with prescribed medications. 02/20/2024 Attention and concentration deficit (ICD-10 - R41.840) 02/19/2024 Unable to concentrate (ICD-10 - R41.840) Unable to concentration - DOROTEO-2 scheduled decrease Caffiene intake ADHD stimulates education Discuss with patient risk of misuse, abuse, and addiction before prescribing stimulant medicines. Cota patients not to share their prescribed stimulant [...] warranted by the prescribed dosage. Random UDS [place] prescription reviewed local pharmacy in [facility], no early refills on control substance educated on non-stimulate and stimulates educated on healthy b/p 120/80 monitor b/p at home refer to PCP, heart healthy diet and excise limit salt intake and caffeine Cannabis/marijuan a information: http_s://mary ellen.nih .gov/publications /drugfacts/cannab is-marijuana http_s://www.[employer]: [employer]/canna iai-vbn-zglmwmgt- marijuana-adhd/ http_s://www.gunner .org/About-Mental -Illness/Mental-H ealth-Conditions http_s://psychcen [place] [employer].com/depressi on/the-cognitive- nmtdyfcj-hx-ixnqp ssion#treatments http__s://www.nim h.nih.gov/health/ topics/mental-hea lth-medications http__s://www.nam i.org/About-Menta [...] potential neurotoxicity and interactions with prescribed medications. 07/08/2024 ADHD (attention deficit hyperactivity disorder), combined type (ICD-10 - F90.2) 06/08/2024 ADHD (attention deficit hyperactivity disorder), combined [...] Adderall XR 25 MG IN AM- Primary Bety Sharp no refill needed today secondary Pharmacy [place] no early refill on control substance and [place] pharmacy monitor B/P see PCP with B/P [...] abuse, and addiction before prescribing stimulant medicines. Cota patients not to share their prescribed stimulant [...] warranted by the prescribed dosage. Random UDS [place] prescription reviewed local pharmacy in [facility], no early refills on control substance educated on non-stimulate and stimulates SEEN PCP with B/P educated on healthy b/p 120/80 monitor b/p at home refer to PCP, heart healthy diet and excise limit salt intake and caffeine http_s://www.gunner .org/About-Mental -Illness/Mental-H ealth-Conditions http_s://psychAuditionBooth.com/depressi on/the-cognitive- zgoogtsa-lv-amqqe ssion#treatments http__s://www.nim h.nih.gov/health/ topics/mental-hea lth-medications http__s://www.nam i.org/About-Menta [...] potential neurotoxicity and interactions with prescribed medications. 06/07/2024 ADHD (attention deficit hyperactivity disorder), combined type (ICD-10 - F90.2) 05/11/2024 ADHD (attention deficit hyperactivity disorder), combined type [...] stimulates Discuss and educated on stimulates discuss [place] pm and educated on rx and patient reported would like to stay on Adderall pateint reported monitor B/P at home daily Increase Adderall XR 25 MG IN AM no early refill on control substance and [place] pharmacy monitor B/P see PCP with B/P [...] abuse, and addiction before prescribing stimulant medicines. Cota patients not to share their prescribed stimulant [...] warranted by the prescribed dosage. Random UDS [place] prescription reviewed local pharmacy in [facility], no early refills on control substance educated on non-stimulate and stimulates SEEN PCP with B/P educated on healthy b/p 120/80 monitor b/p at home refer to PCP, heart healthy diet and excise limit salt intake and caffeine http_s://www.gunner .org/About-Mental -Illness/Mental-H ealth-Conditions http_s://psychcen [place] [employer].com/depressi on/the-cognitive- wbxvrdpl-lw-teyyg ssion#treatments http__s://www.nim .nih.gov/health/ topics/mental-hea lth-medications http__s://www.nam i.org/About-Menta l-Illness/Treatme nts/Mental-Health -Medications [...] potential neurotoxicity and interactions with prescribed medications. 04/19/2024 ADHD (attention deficit hyperactivity disorder), combined type [...] have Wellbutrin discuss and educated on rx Qelbree 200 mg daily in am PA sent- denied- pateint reported rx did not help educated on stimulates and not to take Phertermine with stimulates Discuss and educated on stimulates increase Adderall XR 20 MG IN AM no early refill on control substance and [place] pharmacy monitor B/P see PCP with B/P [...] abuse, and addiction before prescribing stimulant medicines. Cota patients not to share their prescribed stimulant [...] warranted by the prescribed dosage. Random UDS [place] prescription reviewed [place], no early refills on control substance educated on non-stimulate and stimulates SEEN PCP with B/P educated on healthy b/p 120/80 monitor b/p at home refer to PCP, heart healthy diet and excise limit salt intake and caffeine http_s://www.gunner .org/About-Mental -Illness/Mental-H ealth-Conditions http_s://psychSPIRIT Navigationcom/depressi on/the-cognitive- ioxghmlp-wq-xpixp ssion#treatments http__s://www.nim .nih.gov/health/ topics/mental-hea lth-medications http__s://www.nam i.org/About-Menta l-Illness/Treatme nts/Mental-Health -Medications [...] potential neurotoxicity and interactions with prescribed medications. 04/19/2024 ADHD (attention deficit hyperactivity disorder), combined type (ICD-10 - F90.2) 03/25/2024 ADHD (attention deficit hyperactivity disorder), combined type [...] to have Wellbutrin discuss and educated on Qelbree 200 mg daily in am PA sent- denied- pateint reported rx did not help educated on stimulates and not to take Phertermine with stimulates Discuss and educated on stimulates Add Adderall XR 10 MG IN AM no early refill on control substance and [place] pharmacy monitor B/P see PCP with B/P [...] abuse, and addiction before prescribing stimulant medicines. Cota patients not to share their prescribed stimulant [...] warranted by the prescribed dosage. Random UDS [place] prescription reviewed [place], no early refills on control substance educated on non-stimulate and stimulates SEEN PCP with B/P educated on healthy b/p 120/80 monitor b/p at home refer to PCP, heart healthy diet and excise limit salt intake and caffeine http_s://www.gunner .org/About-Mental -Illness/Mental-H ealth-Conditions http_s://psychcen [place] [employer].com/depressi on/the-cognitive- txhajklt-fv-drfju ssion#treatments http__s://www.nim .nih.gov/health/ topics/mental-hea lth-medications http__s://www.nam i.org/About-Menta l-Illness/Treatme nts/Mental-Health -Medications [...] potential neurotoxicity and interactions with prescribed medications. 06/07/2024 Other specified attention deficit hyperactivity disorder (ADHD) (ICD9-CM - 314.01) 02/19/2024 Other Learning About Depression Screening material was printed Unable to concentration - DOROTEO-2 scheduled decrease Caffiene intake ADHD stimulates education Discuss with patient risk of misuse, abuse, and addiction before prescribing stimulant medicines. Cota patients not to share their prescribed stimulant [...] warranted by the prescribed dosage. Random UDS [place] prescription reviewed local pharmacy in [facility], no early refills on control substance educated on non-stimulate and stimulates educated on healthy b/p 120/80 monitor b/p at home refer to PCP, heart healthy diet and excise limit salt intake and caffeine Cannabis/marijuan a information: http_s://mary ellen.nih .gov/publications /drugfacts/cannab is-marijuana http_s://www.Content Syndicate: Words on [employer]/canna jzo-eoj-lifqtjhg- marijuana-adhd/ http_s://www.gunner .org/About-Mental -Illness/Mental-H ealth-Conditions http_s://psychceExecutive Channel/depressi on/the-cognitive- zlmygrmp-gf-srgkn ssion#treatments http__s://www.nim .nih.gov/health/ topics/mental-hea lth-medications http__s://www.nam i.org/About-Menta l-Illness/Treatme nts/Mental-Health -Medications [...] interactions with prescribed medications. Plan Of Treatment Next Appt Details Provider Name:Jasmin Tang , 09/06/2024 08:15:00 AM, [address] [facility] [address] [facility] [address], [place], [address], Insurance Providers Payer Name Payer Address Payer Phone Subscriber Number Group Number Insured Name Patient Relationship to Insured Coverage Start Date Coverage End Date [facility] [address] [place] [address] [id number] Helder Giron Self - patient is the insured Medical (General) History Medical History History ICD Code abdominal aortic aneurysm: No atrial fibrillation: No chronic fatigue syndrome: No essential tremor: No hyperlipidemia: No hypertension: No Parkinson's disease: No restless leg syndrome: No stroke: No type 1 diabetes mellitus: No type 2 diabetes mellitus: No vitamin B12 deficiency: No vitamin D deficiency: Yes Surgical History Surgery Date(Month/Year) L5-S1 STONE REMOVER kidney
--- OUTSIDE RECORDS SUMMARY | 2024-08-02 01:39 | XMS_ITS | Continuity of Care Document ---
Author Organization [facility] Address [address] [place] [address] Phone Care Team Providers Care Incident Response Manager Name Role Phone Yonas Gan MD Unavailable Unavailable Allergies, Adverse Reactions, Alerts Substance Reaction Status Criticality No Known Allergies Active No Inform ation Procedures Procedure Date COMPREHEN METABOLIC PANEL CMP ROUTINE VENIPUNCTURE ACUTE HEPATITIS PANEL ANTINUCLEAR ANTIBODIES (JOSE R) FERRITIN LEVEL ROUTINE VENIPUNCTURE PREVENTATIVE-EST: 40-64 GENERAL HEALTH PANEL LIPID PANEL PSA, TOTAL URINALYSIS, REFLEX (UA) VITAMIN D, 25-HYDROXY ROUTINE VENIPUNCTURE EKG (ELECTROCARDIOGRAM) Pt inelig neg scrn depres OFFICE [id number] BODY MASS INDEX DOCD SYST BP GE 130 - 139MM HG DIAST BP 80-89 MM HG Advance Directives Directive Yes / No Effective Date File Name No Information Encounters Encounter Description Practice Location Reason(s) For Visit Diagnoses Date Provider Providers Copied on Encounter [facility], [address], [place], [place], [address] , [place] tel:[phone] [place] No Information 2 Elvia Hailen. [address] [facility], [address], [place], [address], . tel:[phone] [facility], [address], [place], [place], [address] , tel: [phone] [place] Elevated ALT measurement 1 Sanjiv Adams. [address] [facility] [place], [address], [place]. tel:[phone] Referring Provider: Bryan Kincaid, [address] [place] [address] [address], [place], [address] . tel:[phone] [facility] [address], [place], [place], [address] , tel: [phone] [place] Elevated LFTs 1 Sanjiv Emery [address] [facility] [place], [address], [place]. tel:[phone] Referring Provider: Bryan Kincaid, [address] [place] [address], [address] . tel:[phone] PREVENTATIVE -EST: 40-64 [facility], [address], [place], [place], [address] , tel: [phone] [place] preventative visit/ (chief complaint) Encounter for general adult medical examination without abnormal findingsHypothy roidism, unspecifiedVita min D deficiencyEleva erik LFTs 1 Sanjiv Adams. [address] [facility] [place], [address], [place]. tel:[phone] Referring Provider: Bryan Kincaid [address] [place] [address], [address] . tel:[phone] [facility] [address], [place], [place], [address] , tel: [phone] [place] History of renal calculi 1 Sanjiv Adams. [address] [facility], [id number], [place]. tel: [phone] OFFICE JCAIT-CQW-IU PANDED [facility], [address], [place], [place], [address] , tel: [phone] [place] cough Persistent (chief complaint) Cough 9 Sanjiv Adams. [address] [facility] [place], [address], [place]. tel:[phone] Referring Provider: Bryan Kincaid, [address], [address] . tel:[phone] [facility], [address], [place], [place], [address] , tel: [phone] [place] Cough 9 Sanjiv Adams. [address] [facility], [address], [id number], . tel:[phone] [facility] [facility], [address], [place], [place], [address] , tel: [phone] [place] preventive exam// (chief complaint) Encounter for general adult medical examination without abnormal findingsHypothy roidism, unspecifiedKidn ey stonesVitamin D deficiency 9 Sanjiv Adams. [address] [facility], [address], [id number], [place]. tel:[phone] Referring Provider: Bryan Kincaid [address], [address] . tel:[phone] [facility] [facility], [address], [place], [place], [address] , tel: [phone] [place] Encounter for general adult medical examination without abnormal findings 8 Sanjiv Adams. [address] [facility], [address], [address], [place]. tel:[phone] Referring Provider: Bryan Kincaid, [address], [address] . tel:[phone] [facility] [facility], [address], [place], [place], [address] , tel: [phone] [place] Encounter for general adult medical examination without abnormal findingsHypothy roidism, unspecifiedSubc utaneous massPrediabetes 7 Sanjiv Adams. [address] [facility], [address], [id number], . tel:[phone] Referring Provider: Bryan Kincaid, [address], [address] . tel:[phone] [facility], [address], [place], [place], [address] , tel: [phone] [place] Routine general medical examination at a health care facilityHematur ia, unspecifiedHypo thyroidism, unspecifiedFatt y liver 6 Sanjiv Adams. [address] [facility], [address], [id number], . tel:[phone] Referring Provider: Bryan Kincaid, [address] [place] [address], [address] . tel:[phone] [employer] [facility], [address], [place], [place], [address] , tel: [phone] [place] Elevated liver enzymesHematuri a 5 Sanjiv Adams. [address] [facility], [address], [id number], . tel:[phone] [employer] [facility], [address], [place], [place], [address] , tel: [phone] [place] Routine general medical examination at a health care facility 5 Sanjiv Adams. [address], [id number], [place]. tel:[phone] Referring Provider: Bryan Kincaid, [address] [place] [address], [address] . tel:[phone] Family History Family Member Type Diagnosis Age At Onset Mother Problem (finding) asthma Payers Payer name Insurance type Covered democrat ID Authoriza tion(s) MEDICA [facility] [id number] Social History Type Description Quantity Date Captured Comments Alcohol Use Details Unknown Caffeine Use Details Unknown Tobacco Use Status No Information Smoking Status No Information Sex Male Chief Complaint And Reason For Visit No Information Reason For Referral Reason For Referral No Information Plan Of Treatment Date Type Action Status Referral Referred To: [address] [place], [phone] Ordered: RUQ US (right upper quadrant ultrasound) ordered Referral Ordered: EKG (ELECTROCARDIOGRAM) ordered Referral Referred To: [address] [place], [id number] Ordered: XR KUB ordered Referral Referred To: [address] [place], [id number] Ordered: Chest x-ray, PA and lateral ordered History Of Present Illness Encounter Date Complaint History Of Prese nt Illness preventative visit/ Patient pres ents today to undergo preventative visitNo concerns or complaints at this timereceived Covid 19 swdjpxecgraex-ye-prdr with annual influenza vaccinationlast tetanus shot within the last 10 years Up-to-date with dental, vision carePatient follows up with urology specialist Dr. Lamin Saucedo for management of renal calculiNo family history of prostate or colon cancerhypothyroidismCompliant on medicationno palpitations no tremorsno heat or cold intoleranceVitamin D deficiency-currently on vitamin D 2000 units over the counter dailyPatient follows up with sales financial analyst Dr. Elijah Sheldon for management of sleep apneacurrently using a dental applianceno daytime hypersomnolence no fatigue no drowsiness and no driving problemsNot following a strict dietnot exercising regularlyPros and cons of prostate cancer screening discussedpatient in agreement PSAdeclines TONY past medical history past surgical history current medications and allergies all reviewed in EMR cough Persistent Patient present s today complaining of a persistent coughpatient states he was evaluated at the urgent care December 05 for sore throat and a fever of 102was prescribed Tessalon pearls,was prescribed cherratussin AC by one of his colleagues at the hospital for persistent cough particularly in the eveningsPatient denies feverno shortness of breath or dyspnea on exertionno orthopnea no PNDno chest painpostnasal drip is currently well-controlled on Flonase nasal spray, cetirizineno discolored mucuspatient coughs up small quantities of clear mucuscoughs continuously through the day and nightPatient underwent chest x-ray this morningresults are pendingDenies fevers or chillsno orthopnea no PNDno palpitationsno swelling of lower extremitiesno 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 No skin rashesno nausea vomitingtolerating PO intakeno skin rashesno paresthesias numbness or weaknessno diarrheano urinary symptoms past medical history past surgical history current medications and allergies all reviewed in EMR preventive exam// Patient presen ts today to undergo preventative visitNo concerns or complaintsHas not been exercising of following a strict diet and has gained significant weighthe is planning to improve upon diet and exerciseRemains Up-to-date with dental, vision mjjmdz-ka-ojtg with vaccinations including tetanus and annual influenza vaccinationPatient follows up with urology Dr. Lamin Saucedo for management of renal calculiPatient requests KUB be faxed to urologydenies hematuriano back painno abdominal painNo family history of prostate or colon cancerhypothyroidismCompliant on SynthroidHas gained weightnot exercising or following a strict dietno palpitationsno tremorsno heat or cold intoleranceVitamin D deficiency-currently on vitamin D 2000 units over the counter dailyDoes comment that his states he snores loudlydenies daytime hypersomnolence or fatigueno drowsiness past medical history past surgical history current medications and allergies all reviewed in EMR Functional Status Date Functional Assessmen t No Information Instructions Date Instruction Additional Infor mation Continue vitamin D s upplementsvitamin D levelongoing healthcare discussedpatient states he will no longer be following up at this office and will be transferring care to a new provider as he will be changing insurance I wished him well for the futureno follow-up appointment provided as he will be changing to a new provider Related to Vitamin D deficiency Preventative healthc are discussed including appropriate diet exercise and weight controldiet plans exercise regimens and weight loss programs revieweddiscussed the need for healthy well-balanced diet low in carbohydrates and fatsdiscussed the need for advancing regular exercise combining both aerobic and strength training exercises of moderate intensity for at least 150 minutes a weekcontinue maintaining vision, dental carevaccination schedule discussedCBC CMP lipid panel urinalysis TSH vitamin D level PSAEKGpatient referred to gastroenterology Dr. Tee for screening colonoscopyreviewed and reinforced CDC guidelines during Covid 19 pandemicpatient up-to-date with Covid 19 vaccinationMaintain follow-up with Dr. Elijah Sheldon for management of sleep apnea-patient compliant a dental applianceencourage weight lossmaintain follow-up with urologist Dr. Lamin Hickman for ongoing management of renal calculi Related to Encounter for general adult medical examination without abnormal findings TSHstablecontinue medication Rel ated to Hypothyroidism, unspecified Disease prevention Patient with a persi stent cough for the last four weeks following a significant respiratory infectionwheezing noted on examchest x-ray pendingcontinue Flonase, cetirizineMedrol Dosepak as directedalbuterol inhaler two puffs every 4 to 6 hours for cough and wheezingupdate me with symptoms within 2 to 3 days or certainly sooner should symptoms worsenongoing healthcare discussedreviewed urgent care recordskeep scheduled appointment for follow-up of chronic medical conditions or sooner should concerns arise Related to Cough Disease process Continue vitamin D s upplementsvitamin D levelongoing healthcare discussedfollow-up appointment annually or PRN as needed Related to Vitamin D deficiency Maintain follow-up w [facility] urology Dr. Lamin Hickman for managementKUB will be ordered as requested and faxed to urology for ongoing management Related to Kidney stones TSHcontinue medication Related t o Hypothyroidism, unspecified Preventative healthc are discussed including appropriate diet exercise and weight controldiscussed the importance of advancing exercise combining both aerobic and strength training exercises of moderate intensity for at least 150 minutes a weekdiscussed the importance of following a healthy well-balanced diet low in carbohydrates and fatscontinue maintaining vision, dental carevaccination schedule discussedCBC CMP lipid panel hemoglobin A1c TSH urinalysis vitamin D levelpatient referred to sleep physician Dr. Elijah Shelodn for evaluation of snoring and rule out sleep apnea Related to Encounter for general adult medical examination without abnormal findings Disease prevention Assessments Type Assessment Date No Information Patient Care Teams Name Effective Dates (start - stop) Status Members No Information
--- OUTSIDE RECORDS SUMMARY | 2024-08-02 01:39 | XMS_ITS | Encounter Summary ---
Author Organization [facility] Address [address] [place] [address] Care Team Providers Care It Technical Architect Name Role Phone Bryan Kincaid MD Primary Care Provider Andre Diane MD Primary Care Provider Unavailabl e Bryan Kincaid MD Primary Care Provider Andre Diane MD Primary Care Provider Unavailabl e Encounter Details Date Type Department Care Team (Late st Contact Info) Description 10/03/2016 [facility] Outpatient Visit [facility] [address] [place] [address] [place] [address] [address] Social History Tobacco Use Types Packs/Day Years [...] or have serious hearing difficult y? No 03/07/2016 Is person blind or have serious difficulty seein g? No 03/07/2016 Does person have serious dif ficulty walking/climbing stairs? No 03/07/2016 Does person have difficulty dressing/bathing? No 03/07/2016 Does person have difficulty doing errands alone? No 03/07/2016 Cognitive Status Response Date of Assessm ent Does person have difficulty concentrating/remembering/making decisions? No 03/07/2016 documented as of this encounter Plan of Treatment Not on file documented as of this encounter Visit Diagnoses Not on filedocumented in this encounter Care Teams It Technical Architect Relationship Specialty [place] [address] [place] [address] PCP - General Internal Medicine 10/12/14 08/04/19 [place] [address] [place] [address] PCP - General 08/05/19 10/31/20 [place] [address] [place] [address] PCP - General Internal Medicine 11/01/20 06/03/21 [place] [address] [place] [address] PCP - General 06/04/21 documented as of this encounter
--- OUTSIDE RECORDS SUMMARY | 2024-08-02 01:39 | XMS_ITS | Encounter Summary ---
Author Organization [facility] Address [address] [place] [address] Care Team Providers Care Commissary Agent Name Role Phone Bryan Kincaid MD Primary Care Provider Andre Diane MD Primary Care Provider Unavailabl e Bryan Kincaid MD Primary Care Provider Andre Diane MD Primary Care Provider Unavailabl e Encounter Details Date Type Department Care Team (Late st Contact Info) Description 10/18/2014 [facility] Outpatient Visit [facility]NAL [facility] [place] [address] [place] [address] Social History Tobacco Use Types Packs/Day Years [...] on filedocumented in this encounter Care Teams Commissary Agent Relationship Specialty Start Date End Date Bryan Kincaid [place] [address] [place] [address] PCP - General Internal Medicine 10/12/14 08/04/19 Andre [place] [address] [place] [address] PCP - General 08/05/19 10/31/20 [place] [address] [place] [address] PCP - General Internal Medicine 11/01/20 06/03/21 [place] [address] [place] [address] PCP - General 06/04/21 documented as of this encounter
[2024-08-02 06:42] VITALS: BP 140/78; PULSE 64; RESP 18; TEMP 35.7; O2SAT 98; BMI 29.7
[2024-08-02] MEDS: LACTATED RINGERS 1,000 ML 150 ML IV CONT (06:59)
--- NOTE | 2024-08-02 07:52 | P.PNAN_ITS ---
Anes - Initial Pre Proc Eval Procedure: Operation Date: 08/02/24 08:00 Proposed Procedures p Screening Colonoscopy - Jakub Kowalski DO Date/Time: 08/02/24 07:52 Surgeon: Jakub Kowalski DO Pre Op Diagnosis: screening for malignant neoplasm of colon Patient Data Age: 54 Gender: M Height: 1.8 m Weight: 96.6 kg Last Vital Signs Temp 35.7 C L 08/02/24 06:42 Pulse 64 08/02/24 06:42 Resp 18 08/02/24 06:42 BP 140/78 08/02/24 06:42 Pulse Ox 98 08/02/24 06:42 O2 Del Method Room Air 08/02/24 06:42 Allergies Allergy/AdvReac Type Severity Reaction Status Date / Time No Known Allergies Allergy Verified 08/02/24 06:47 Home Medications ?Medication ?Instructions ?Recorded ?Confirmed ?Type cholecalciferol (vitamin D3) 50 50 mcg PO DAILY 05/14/21 08/02/24 History mcg (2,000 unit) capsule (Vitamin D3) vitamin K2 100 mcg capsule 150 mcg PO DAILY 05/14/21 08/02/24 History levothyroxine 25 mcg tablet See Rx Instructions .Route 12/02/23 08/02/24 Rx .COMPLEX #135 tabs penciclovir 1 % topical cream 1 applic topical Q2H #5 grams 12/02/23 08/02/24 Rx (Denavir) valsartan 80 mg tablet 80 mg PO DAILY #90 tabs 05/21/24 08/02/24 Rx Patient hx anesthesia problems: post op nausea/vomiting Family hx anesthesia problems: none Results Review: All pre-operative results and documents have been reviewed as part of the pre- operative evaluation. [facility] Past Medical History Medical History BMI 29.0-29.9,adult Elevated BP without diagnosis of hypertension Screening for diabetes mellitus (DM) Establishing care with new doctor, encounter for Lipoma Nephrolithiasis Onychomycosis Hypothyroidism (acquired) Steatosis of liver Surgical History Surgical History S/P excision of lipoma H/O lithotripsy H/O lumbosacral spine surgery 1990 L5-S1 discectomy Family History Family History Mother Asthma Social History Social History Social History: Smoking status: Never smoker Second hand tobacco smoke exposure: No Alcohol intake: never Substance use: never Substance use type: does not use Do You Feel Safe in your Home?: Yes Lack of Transportation: No Lack of Food: Never True Current Housing: I Have Housing Concerned About Future Housing: No Difficulty Paying Gas/Electric Bills: No Difficulty Paying for Meds: No Currently Unemployed: No Education: Decline to Answer Difficulty w/ Childcare or Family Care: No Living arrangements: with family Occupation/Education: retired Gender identity (if verbalized by the patient): Male Sexual Orientation (if Verbalized by the Patient): Straight or Heterosexual Spiritual care concerns: No Anes - Eval Final PreProcedure Day of Procedure 08/02/24 07:52 Patient weight: overweight Heart: regular rate and rhythm Lungs: clear to auscultation Airway: Mallampati scale class II Neurological: alert and oriented Last oral intake: >/= 8 hours ASA classification: III Emergent: no Anesthetic plan: proceed Anesthesia type and monitoring: general GIVS and standard monitoring Results Review: All pre-operative results and documents have been reviewed as part of the pre- operative evaluation. Informed Consent: The patient's anesthetic plan and its attendant risks and benefits were discussed with the patient/family/POA. Questions were solicited and answers provided to the satisfaction of the patient/family/POA.
--- NOTE | 2024-08-02 08:00 | P.HP_ITS ---
H&P: HPI History of Present Illness Date/Time: 08/02/24 08:00 Chief Complaint: history of colon polyps Narrative: this is a 54-year-old man who presents for colonoscopy. He had a colonoscopy 3 years ago which showed evidence of 5 polyps. He denies any family history of colon cancer. He does have some occasional rectal bleeding from hemorrhoids but denies any hematochezia or melena. He also reports a history of right flank pain but could not find a source. Review of Systems Review of Systems: All systems reviewed & are unremarkable except as noted in HPI and below Constitutional: Constitutional: Denies chills, Denies fever(s), Denies headache(s) and Denies weight loss Eyes: Eyes: Denies change in vision ENT: Denies dizziness, Denies headache(s), Denies neck mass and Denies throat swelling Cardiovascular: Cardiovascular: Denies chest pain, Denies lightheadedness and Denies dyspnea Respiratory: Respiratory: Denies cough, Denies dyspnea and Denies wheezing Gastrointestinal: Gastrointestinal: Denies abdominal pain, Denies change in bowel habits, Denies nausea and Denies vomiting Genitourinary: Genitourinary: Denies hematuria and Denies dysuria Musculoskeletal: Musculoskeletal: Reports as per HPI Integumentary/Breasts: Skin/Breast: Reports as per HPI Neurologic: Denies dizziness and Denies headache(s) Allergic/Immunologic: Allergic/Immunologic: Denies throat swelling and Denies wheezing PMF Past Medical History Medical History BMI 29.0-29.9,adult Elevated BP without diagnosis of hypertension Screening for diabetes mellitus (DM) Establishing care with new doctor, encounter for Lipoma Nephrolithiasis Onychomycosis Hypothyroidism (acquired) Steatosis of liver Surgical History Surgical History S/P excision of lipoma H/O lithotripsy H/O lumbosacral spine surgery 1990 L5-S1 discectomy Family History Family History Mother Asthma Social History Social History Social History: Smoking status: Never smoker Second hand tobacco smoke exposure: No Alcohol intake: never Substance use: never Substance use type: does not use Do You Feel Safe in your Home?: Yes Lack of Transportation: No Lack of Food: Never True Current Housing: I Have Housing Concerned About Future Housing: No Difficulty Paying Gas/Electric Bills: No Difficulty Paying for Meds: No Currently Unemployed: No Education: Decline to Answer Difficulty w/ Childcare or Family Care: No Living arrangements: with family Occupation/Education: retired Gender identity (if verbalized by the patient): Male Sexual Orientation (if Verbalized by the Patient): Straight or Heterosexual Spiritual care concerns: No Meds Home Medications and Allergies Home Medications ?Medication ?Instructions ?Recorded ?Confirmed ?Type cholecalciferol (vitamin D3) 50 50 mcg PO DAILY 05/14/21 08/02/24 History mcg (2,000 unit) capsule (Vitamin D3) vitamin K2 100 mcg capsule 150 mcg PO DAILY 05/14/21 08/02/24 History levothyroxine 25 mcg tablet See Rx Instructions .Route 12/02/23 08/02/24 Rx .COMPLEX #135 tabs penciclovir 1 % topical cream 1 applic topical Q2H #5 grams 12/02/23 08/02/24 Rx (Denavir) valsartan 80 mg tablet 80 mg PO DAILY #90 tabs 05/21/24 08/02/24 Rx Allergies Allergy/AdvReac Type Severity Reaction Status Date / Time No Known Allergies Allergy Verified 08/02/24 06:47 Vital Signs Vital Signs - 24 hr 08/02/24 06:42 Temperature 96.3 F L Pulse Rate 64 Respiratory Rate 18 Blood Pressure 140/78 Pulse Oximetry 98 Oxygen Delivery Room Air Exam Const: General: no acute distress and alert Orientation/consciousness: patient oriented x3 HENMT: Head: normocephalic and atraumatic Ears: hearing grossly normal bilaterally Face/Nose/Sinus: Normal nares present Mouth: Yes Normal oral and palatal mucosa present Eyes: Periorbital: periorbital findings normal Sclera: sclerae normal EOM: EOMs intact bilaterally Neck: Neck: normal visual inspection, no lymphadenopathy and trachea midline Chest: Chest palpation & inspection: normal inspection of the chest Resp: Effort & Inspection: normal respiratory effort Auscultation: clear to auscultation bilaterally Cardio: Jugular venous distension: no JVD Rate: regular rate Rhythm: regular rhythm Heart sounds: S1 normal heart sound present and S2 normal h eart sound present Peripheral pulses: Peripheral pulses 2+ throughout GI: Inspection: normal to inspection GI Palp: Yes Soft to palpation, No Tenderness to palpation present (GI), No Guarding due to palpation present (GI) and No Rebound tenderness present Percussion: Yes normal to percussion Auscultation: normal bowel sounds : General: Yes no CVA tenderness Back/Spine/Pelvis: Back: no CVA tenderness Neuro: General: patient oriented x3, no focal motor deficits and CN's II-XI intact bilaterally Cognition (Neuro): normal cognition Speech: normal speech Motor exam (neuro): 5/5 motor strength present throughout Extrem: General: capillary refill normal and no clubbing, cyanosis or edema Assessment and Plan Assessment and plan (1) History of colon polyps: Code(s): Z86.0100 - Personal history of colon polyps, unspecified Status: Acute Assessment and Plan: I have recommended colonoscopy. I have discussed the procedure, risks, benefits, and alternatives. Questions were answered. Patient is agreeable to proceed.
[2024-08-02 08:32] VITALS: BP 105/57; PULSE 58; RESP 20; O2SAT 99
[2024-08-02 08:42] VITALS: BP 110/60; PULSE 55; RESP 20; O2SAT 99
[2024-08-02 08:52] VITALS: BP 115/70; PULSE 54; RESP 20; O2SAT 99
== END 2024-08-02 08:55 | disposition home or self-care (01) ==
PROVIDERS: PCP Family Medicine; Visit Provider Surgery
PROC: 0DJD8ZZ Inspection of Lower Intestinal Tract, Via Natural or Artificial Opening Endoscopic (ICD-10-PCS; CPT 45378; principal; 2024-08-02 08:00)
DX: Z12.11 Encounter for screening for malignant neoplasm of colon (principal); D12.5 Benign neoplasm of sigmoid colon; K57.30 Diverticulosis of large intestine without perforation or abscess without bleeding
CPT/HCPCS: 45385; 88305; J2704; J7120